=== PATIENT | male | born 1990 | race Caucasian/White ===

== ENCOUNTER 2018-04-30 17:41 | Emergency (ER) | payer SELFPAY ==
[~2018-04-30] VITALS: Ht 170.2 cm; Wt 70.3 kg
[~2018-04-30 17:41] MED LIST: AZIT250T81 PO
[2018-04-30] MEDS ORDERED: LACTATED RINGERS 1,000 ML IV ONE (18:09)
[2018-04-30 18:19] LABS: BILIRUBIN,URINE NEGATIVE (NEGATIVE); CLARITY,URINE CLEAR; COLOR,URINE YELLOW; GLUCOSE, URINE (UA) NEGATIVE (NEGATIVE); KETONES,URINE NEGATIVE (NEGATIVE); LEUKOCYTE ESTERASE ,URINE NEGATIVE (NEGATIVE); NITRITE,URINE NEGATIVE (NEGATIVE); PH,URINE 6.5 (5-9); PROTEIN,URINE NEGATIVE (NEGATIVE); UROBILINOGEN,URINE 1 MG/DL (NORMAL)
--- NOTE | 2018-04-30 18:20 | ED General ---
General Chief Complaint: Substance Abuse Stated Complaint: POSS OD Nursing Triage Note: PT'S GIRLFRIEND STATES THAT SHE CAME HOME AND FOUND THE PT WITH SLURRED SPEACH AND LETHARGIC. SHE CALLED ONE OF HIS CO WORKERS AND THEY STATED HE TOOK A BUNCH OF PILLS. PT STATES HE TOOK AN UNKNOWN NUMBER OF FLEXERIL, XANAX, AND HYDROCODONE. PT STATES HE WAS NOT TRYING TO HURT HIMSELF BUT WANTED TO "GET A RECREATIONAL HIGH." Nursing Sepsis Screen: No Definite Risk Source of Information: Other (MOM, GIRLFRIEND) Exam Limitations: Other (PT UNABLE TO GIVE RELIABLE INFORMATION--SI CONFUSED) History of Present Illness Date Seen by Provider: Apr 30, 2018 Time Seen by Provider: 17:55 Initial Comments PT ARRIVES VIA POV WITH MOM AND GIRLFRIEND PT WAS LAST SEEN BY GIRLFRIEND AND MOM LAST EVENING AND WAS NORMAL GIRLFRIEND CAME HOME TODAY AT 1600 AND FOUND PT IN BED, AND COULDN'T WALK, WAS CONFUSED, TALKING OUT OF HIS HEAD--DIDN'T KNOW HIS NAME OR WHERE HE WAS OR WHAT YEAR IT WAS GIRLIENFreddy HAS BEEN TEXTING CO-WORKERS [employer] SINCE 1729 AND THEY HAVE TOLD HER THAT THEY ALL GOT OFF WORK AROUND 11:00 OR 12 NOON TODAY, THAT PT WAS WITH 1 CO-WORKER AND THEN WENT TO ANOTHER FRIEND'S HOUSE A CO-WORKER INFORMED GIRLFRIEND THAT HE TOOK SOME PILLS PT STATES HE POSSIBLY TOOK FLEXERIL, XANAX, HYDROCODONE AND POSSIBLY VALIUM. PT STATES HE WAS "TRYING TO GET HIGH". CANNOT STATE FOR CERTAIN WHAT HE TOOK OR HOW MUCH. PT STATES HE ABUSES RX PILLS "A COUPLE OF TIMES A MONTH"--NOT MEDICATIONS THAT HAVE BEEN PRESCRIBED TO HIM PT ALSO STATES HE HAS BEEN DRINKING AND HAD 3-4 BEERS TODAY AND THAT HE BEGAN DRINKING AROUND 1230 TODAY PT ALSO STATES HE HAS BEEN AT THE [facility] ALL DAY---PER GIRLFRIEND, HIS FRIENDS HAVE STATED THAT HE HAS NOT BEEN TO A BALLGAME TODAY AND THAT PT HAS NOT HAD ANY ALCOHOL AND THAT NO ONE WAS DRINKING ALCOHOL TODAY. UNABLE TO VERIFY IF/WHAT PT MIGHT HAVE TAKEN TODAY NO OTHER INFORMATION IS KNOW ABOUT WHAT OCCURRED AT ANY TIME TODAY PCP: NONE--WAS SEEING DR. CARRINGTON IN [place], BUT HE HAS LEFT THE PRACTICE. Allergies and Home Medications Allergies Coded Allergies: No Known Drug Allergies (Unverified , 05/05/15) Home Medications Azithromycin 250 Mg Tablet, 250 MG PO DAILY Prescribed by: ELISEO SAUCEDO on 05/05/15 0304 Patient Home Medication List Home Medication List Reviewed: Yes Review of Systems Constitutional: other (PT IS NOT RELIABLE HISTORIAN) Gastrointestinal: No nausea, No vomiting Past Szoihxn-Dnnewc-Vzmcoo Hx Patient Social History Alcohol Use: Occasionally Uses Alcohol Beverage of Choice: Beer Recreational Drug Use: Yes (RX DRUGS; TESTED + FOR AMPHETAMINES/ METHAMPHETAMINES, THC, TRICYCYLICS, BENZODIAZEPINES ON 04/30/18) Drug of Choice: TESTED + FOR AMPHETAMINES/METHAMPHETAMINES,THC, TRICYCLIC, BENZO'S 04/30/18 Smoking Status: Current Everyday Smoker (1 PPD) Type Used: Cigarettes Recent Foreign Travel: No Contact w/Someone Who Travel: No Recent Infectious Disease Expo: No Recent Hopitalizations: No Seasonal Allergies Seasonal Allergies: No Past Medical History Surgeries: Yes (BILAT EAR DRUM RECONSTRUCTION) Ear Surgery, Tonsillectomy Respiratory: Yes (heavy tobaccoism) Cardiac: No Neurological: No Reproductive Disorders: No Genitourinary: No Gastrointestinal: No Musculoskeletal: No Endocrine: No HEENT: Yes (EAR RECONSTRUCTION) Tonsilitis Hearing Impairment: Hard of Hearing Cancer: No Psychosocial: Yes (RX DRUG ABUSE) Integumentary: No Blood Disorders: No Physical Exam Vital Signs Vital Signs - First Documented 04/30/18 17:49 Temp 97.4 Pulse 61 Resp 18 B/P (MAP) 127/82 (97) Pulse Ox 100 O2 Delivery Room Air Capillary Refill : Less Than 3 Seconds Height, Weight, BMI Height: 5'7" Weight: 155lbs. oz. 70.953390kt; 25.84 BMI Method:Stated General Appearance: No Apparent Distress, Thin, Other (PT ACTING VERY "SPACEY" --TALKING BUT SPEECH IS SOMEWHAT MUMBLED, AND SPACES OUT/MUCH DIFFICULTY CONCENTRATING--UNABLE TO COMPLETE SENTENCES, SIMPLY STOPS TALKING MID-SENTENCE, LOOKING AROUND AT NOTHING IN PARTICULAR. ) HEENT: PERRL/EOMI Neck: Normal Inspection Respiratory: Normal Breath Sounds, No Accessory Muscle Use, No Respiratory Distress Cardiovascular: Regular Rate, Rhythm, No Edema, No JVD, No Murmur, Normal Peripheral Pulses Gastrointestinal: Non Tender, Soft Extremity: Normal Inspection Neurologic/Psychiatric: Alert, No Motor/Sensory Deficits, supplier engineer II-XII Norm as Tested, Other (MENTATION ABOVE. PT DIFFICULTY FORMING AND COMPLETING THOUGHTS , DIFFICULTY FOLLOWING COMMANDS, UNABLE TO DETERMINE ORIENTATION--ORIENTED TO PERSON AND PEOPLE IN ROOM, BUT APPEARS CONFUSED TO PLACE, TIME, SITUATION, AND TODAY'S EVENTS. SOME DIFFICULTY COMPLETING SIMPLE TASKS) Progress/Results/Core Measures Suspected Sepsis Recent Fever Within 48 Hours: No Infection Criteria Present: None New/Unexplained Altered Menta: Yes Sepsis Screen: No Definite Risk SIRS Temperature:97.4 Pulse: 61 Respiratory Rate: 18 Laboratory Tests 04/30/18 18:20: White Blood Count 10.9 Blood Pressure 127 /82 Mean: 97 Laboratory Tests 04/30/18 18:20: Creatinine 0.96, Platelet Count 189, Total Bilirubin 0.9 Results/Orders Lab Results Laboratory Tests Test 04/30/18 18:10 04/30/18 18:20 Range/Units Urine Color YELLOW Urine Clarity CLEAR Urine pH 6.5 5-9 Urine Specific [place] 1.015 L 1.016-1.022 Urine Protein NEGATIVE NEGATIVE Urine Glucose (UA) NEGATIVE NEGATIVE Urine Ketones NEGATIVE NEGATIVE Urine Nitrite NEGATIVE NEGATIVE Urine Bilirubin NEGATIVE NEGATIVE Urine Urobilinogen 1 NORMAL MG/DL Urine Leukocyte Esterase NEGATIVE NEGATIVE Urine RBC (Auto) NEGATIVE NEGATIVE Urine RBC NONE /HPF Urine WBC NONE /HPF Urine Squamous Epithelial Cells RARE /HPF Urine Crystals NONE /LPF Urine Bacteria NONE /HPF Urine Casts NONE /LPF Urine Mucus NEGATIVE /LPF Urine Culture Indicated NO Urine Opiates Screen NEGATIVE NEGATIVE Urine Oxycodone Screen NEGATIVE NEGATIVE Urine Methadone Screen NEGATIVE NEGATIVE Urine Propoxyphene Screen NEGATIVE NEGATIVE Urine Barbiturates Screen NEGATIVE NEGATIVE Ur Tricyclic Antidepressants Screen POSITIVE H NEGATIVE Urine Phencyclidine Screen NEGATIVE NEGATIVE Urine Amphetamines Screen POSITIVE H NEGATIVE Urine Methamphetamines Screen POSITIVE H NEGATIVE Urine Benzodiazepines Screen POSITIVE H NEGATIVE Urine Cocaine Screen NEGATIVE NEGATIVE Urine Cannabinoids Screen POSITIVE H NEGATIVE White Blood Count 10.9 4.3-11.0 10^3/uL Red Blood Count 5.25 4.35-5.85 10^6/uL Hemoglobin 16.8 13.3-17.7 G/DL Hematocrit 46 40-54 % Mean Corpuscular Volume 88 80-99 FL Mean Corpuscular Hemoglobin 32 25-34 PG Mean Corpuscular Hemoglobin Concent 36 32-36 G/DL Red Cell Distribution Width 13.1 10.0-14.5 % Platelet Count 189 130-400 10^3/uL Mean Platelet Volume 10.1 7.4-10.4 FL Neutrophils (%) (Auto) 64 42-75 % Lymphocytes (%) (Auto) 29 12-44 % Monocytes (%) (Auto) 6 0-12 % Eosinophils (%) (Auto) 1 0-10 % Basophils (%) (Auto) 0 0-10 % Neutrophils # (Auto) 6.9 1.8-7.8 X 10^3 Lymphocytes # (Auto) 3.2 1.0-4.0 X 10^3 Monocytes # (Auto) 0.7 0.0-1.0 X 10^3 Eosinophils # (Auto) 0.1 0.0-0.3 10^3/uL Basophils # (Auto) 0.0 0.0-0.1 10^3/uL Sodium Level 141 135-145 MMOL/L Potassium Level 3.6 3.6-5.0 MMOL/L Chloride Level 105 98-107 MMOL/L Carbon Dioxide Level 26 21-32 MMOL/L Anion Gap 10 5-14 MMOL/L Blood Urea Nitrogen 8 7-18 MG/DL Creatinine 0.96 0.60-1.30 MG/DL Estimat Glomerular Filtration Rate > 60 BUN/Creatinine Ratio 8 Glucose Level 86 70-105 MG/DL Calcium Level 10.1 8.5-10.1 MG/DL Total Bilirubin 0.9 0.1-1.0 MG/DL Aspartate Amino Transf (AST/SGOT) 20 5-34 U/L Alanine Aminotransferase (ALT/SGPT) 17 0-55 U/L Alkaline Phosphatase 74 40-136 U/L Total Protein 7.0 6.4-8.2 GM/DL Albumin 4.8 H 3.2-4.5 GM/DL TSH [place] Testing 0.91 0.35-4.94 UIU/ML Salicylates Level < 5.0 L 5.0-20.0 MG/DL Acetaminophen Level < 10 L 10-30 UG/ML Serum Alcohol < 10 <10 MG/DL My Orders Orders - AD BURCIAGA DO Ua Culture If Indicated (04/30/18 17:57) Thyroid Analyzer (04/30/18 17:57) Drug Screen Stat (Urine) (04/30/18 17:57) Cbc With Automated Diff (04/30/18 17:57) Comprehensive Metabolic Panel (04/30/18 17:57) Alcohol (04/30/18 17:57) Acetaminophen (04/30/18 17:57) Salicylate (04/30/18 17:57) Ekg Tracing (04/30/18 17:57) Monitor-Rhythm Ecg Trace Only (04/30/18 17:57) Saline Lock/Iv-Start (04/30/18 18:09) Lactated Ringers (Lr 1000 Ml Iv Solution (04/30/18 18:09) Ct Head Wo (04/30/18 18:09) Medications Given in ED Current Medications Medications Dose Ordered Sig/Sandra Route Start Time Stop Time Status Last Admin Dose Admin Lactated Ringer's 1,000 ml @ 0 mls/hr Q0M ONCE IV 04/30/18 18:09 04/30/18 18:10 DC 04/30/18 18:24 1,000 MLS/HR Vital Signs/I&O 04/30/18 04/30/18 17:49 19:17 Temp 97.4 97.2 Pulse 61 60 Resp 18 19 B/P (MAP) 127/82 (97) 139/81 (97) Pulse Ox 100 100 O2 Delivery Room Air Room Air Capillary Refill : Less Than 3 Seconds Blood Pressure Mean: 97 Progress Note : Progress Note PT MORE ALERT/ORIENTED AND ACTING A LITTLE MORE APPROPRIATE AT TIME OF DISMISSAL PT ABLE TO AMBULATE INTO AND OUT OF ER ON HIS OWN DISCUSSION WITH PT, MOM AND GIRLFRIEND ABOUT TEST RESULTS, AND GAVE INFORMATION ABOUT SUBSTANCE ABUSE TREATMENT ECG Initial ECG Impression Date: Apr 30, 2018 Initial ECG Impression Time: 18:18 Initial ECG Rate: 61 Initial ECG Rhythm: Normal Sinus Diagnostic Imaging Comments CT HEAD--NO ACUTE PROCESS, PER RADIOLOGIST REPORT @ 1854 Reviewed: Reviewed by Me Departure Impression Primary Impression: Illicit drug use Disposition: 01 HOME, SELF-CARE Condition: Stable Departure-Patient Inst. Referrals: BELTRAN CARRINGTON DO (PCP/Family) Primary Care Physician Patient Instructions: ALCOHOL AND SUBSTANCE ABUSE Add. Discharge Instructions: NO DRUGS!! NO ALCOHOL!! YOU MAY CONTACT [facility] AT [phone] OR [facility] AT [phone] FOR ADDICTION TREATMENT All discharge instructions reviewed with patient and/or family. Voiced understanding. AD BURCIAGA DO Apr 30, 2018 18:20
[2018-04-30 18:25] LABS: SQUAMOUS EPITHELIAL CELL,UR RARE /HPF
[2018-04-30 18:28] LABS: BASOPHILS % (AUTO) 0 % (0-10); EOSINOPHILS # (AUTO) 0.1 10^3/uL (0.0-0.3); EOSINOPHILS % (AUTO) 1 % (0-10); HEMATOCRIT 46 % (40-54); HEMOGLOBIN 16.8 G/DL (13.3-17.7); LYMPHOCYTES # (AUTO) 3.2 X 10^3 (1.0-4.0); LYMPHOCYTES % (AUTO) 29 % (12-44); MEAN CORPUSCULAR HEMOGLOBIN 32 PG (25-34); MEAN CORPUSCULAR HGB CONC 36 G/DL (32-36); MEAN CORPUSCULAR VOLUME 88 FL (80-99); MEAN PLATELET VOLUME 10.1 FL (7.4-10.4); MONOCYTES # (AUTO) 0.7 X 10^3 (0.0-1.0); MONOCYTES % (AUTO) 6 % (0-12); NEUTROPHILS # (AUTO) 6.9 X 10^3 (1.8-7.8); NEUTROPHILS % (AUTO) 64 % (42-75); PLATELET COUNT 189 10^3/uL (130-400); RED BLOOD COUNT 5.25 10^6/uL (4.35-5.85); RED CELL DISTRIBUTION WIDTH 13.1 % (10.0-14.5); WHITE BLOOD COUNT 10.9 10^3/uL (4.3-11.0)
[2018-04-30 18:30] LABS: AMPHETAMINE SCREEN, URINE POSITIVE (NEGATIVE); BARBITURATE SCREEN URINE NEGATIVE (NEGATIVE); BENZODIAZEPINES SCREEN URINE POSITIVE (NEGATIVE); CANNABINOID SCREEN, URINE POSITIVE (NEGATIVE); COCAINE SCREEN URINE NEGATIVE (NEGATIVE); METHADONE STAT NEGATIVE (NEGATIVE); METHAMPHETAMINE SCREEN URINE S POSITIVE (NEGATIVE); OPIATE SCREEN URINE NEGATIVE (NEGATIVE); OXYCODONE STAT NEGATIVE (NEGATIVE); PROPOXYPHENE STAT NEGATIVE (NEGATIVE); TRICYCLIC ANTIDEPRESSANTS SCRE POSITIVE (NEGATIVE)
[2018-04-30 18:47] LABS: ACETAMINOPHEN < 10 UG/ML (10-30); ALANINE AMINOTRANSFERASE 17 U/L (0-55); ALBUMIN 4.8 GM/DL (3.2-4.5); ALKALINE PHOSPHATASE 74 U/L (40-136); BILIRUBIN,TOTAL 0.9 MG/DL (0.1-1.0); BUN/CREATININE RATIO 8; CALCIUM 10.1 MG/DL (8.5-10.1); CARBON DIOXIDE 26 MMOL/L (21-32); CHLORIDE 105 MMOL/L (98-107); CREATININE SERUM 0.96 MG/DL (0.60-1.30); GFR ESTIMATED > 60; GLUCOSE 86 MG/DL (70-105); POTASSIUM 3.6 MMOL/L (3.6-5.0); SALICYLATE < 5.0 MG/DL (5.0-20.0); SODIUM 141 MMOL/L (135-145)
--- NOTE | 2018-04-30 18:47 | Diagnostic Imaging Report ---
INDICATION: Lethargy and slurred speech, possible overdose. Noncontrast brain CT is performed. There is no prior study for comparison. FINDINGS: There are no extra-axial fluid collections. No intracranial hemorrhage. No intracranial mass or mass effect. No midline shift. The ventricles are normal in size and position. There are no focal parenchymal abnormalities in the brain. Calvarial windows appear unremarkable. IMPRESSION: Negative noncontrast brain CT. Dictated by: Dictated on workstation # [id number]
[2018-04-30 19:07] LABS: TSH (THYROID ANALYZER) 0.91 UIU/ML (0.35-4.94)
[2018-04-30 19:17] VITALS: BP 139/81
== END 2018-04-30 19:18 | disposition home or self-care (01) ==
LOC: EDUNIT# 17:41 → ER 17:43
DX: F19.10 Other psychoactive substance abuse, uncomplicated (principal); F15.10 Other stimulant abuse, uncomplicated; F12.10 Cannabis abuse, uncomplicated; F17.210 Nicotine dependence, cigarettes, uncomplicated; Z90.89 Acquired absence of other organs
CPT/HCPCS: 36415; 70450; 80053; 80306; 80320; 80329; 81000; 84443; 85025; 93005; 93041; 96360

== ENCOUNTER 2020-04-02 18:15 | Inpatient (IN) | payer MEDICAID, OTHER ==
[~2020-04-02] VITALS: Ht 170 cm; Wt 72.0 kg
[2020-04-02] VITALS (8 sets, daily range): BP systolic 120–141; BP diastolic 83–94
[2020-04-02] MEDS ORDERED: LACTATED RINGERS 1,000 ML IV ONE (18:21)
--- OUTSIDE RECORDS SUMMARY | 2020-04-02 18:22 | XMS REPORT ---
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 [id number] ALLERGIES No Information ENCOUNTERS Encounter Location Date Diagnosis [facility] [address] [facility] [id number] [address] [place] [id number] Jun, [facility] [address] [facility] [id number] [place] [address] 08 Jun, 2017 Impetigo L01.00 ; Herpes sim plex infection of penis A60.01 and Screening for STD sexually transmitted disease Z11.3 IMMUNIZATIONS No Known Immunizations SOCIAL HISTORY Never Assessed REASON FOR VISIT Lab results PLAN OF CARE VITAL SIGNS MEDICATIONS Unknown Medications RESULTS No Results PROCEDURES No Known procedures INSTRUCTIONS MEDICATIONS ADMINISTERED No Known Medications
--- OUTSIDE RECORDS SUMMARY | 2020-04-02 18:22 | XMS REPORT | Continuity of Care Document ---
Author Organization Unknown Address Unknown Phone Unavailable Allergies Active Description Code Type Severity Reaction Onset Reported/Identified Relationship to Patient Clinical Status Yes NO KNOWN DRUG ALLERGIES UNKNOWN NO KNOWN DRUG ALLERG Yes No Known Drug Allergies [id number] Drug Allergy Unknown N/A 05/05/2015 Medications There is no data. Problems Date Dx Coded Attending Type Code Diagnosis Diagnosed By 05/05/2015 DAYNA JENKINS, ELISEO Lopez Ot 288.60 LEUKOCYTOSIS, UNSPECIFIED 05/05/2015 DAYNA JENKINS, ELISEO Lopez Ot 305.1 TOBACCO USE DISORDER 05/05/2015 DAYNA JENKINS, ELISEO Lopez Ot 780.79 OTH MALAISE FATIGUE 05/05/2015 DAYNA JENKINS, ELISEO Lopez Ot 785.1 PALPITATIONS 05/05/2015 DAYNA JENKINS, ELISEO Lopez Ot 786.09 RESPIRATORY ABNORM NEC 05/05/2015 DAYNA JENKINS, ELISEO Lopez Ot 787.02 NAUSEA ALONE 03/09/2017 JENNY ROSA 305.2 0 CANNABIS ABUSE, UNSPECIFIED USE 03/09/2017 EJNNY ROSA 780.7 9 OTHER MALAISE AND FATIGUE 03/09/2017 JENNY ROSA F12.1 0 CANNABIS ABUSE, UNCOMPLICATED 03/09/2017 JENNY ROSA R53.8 3 OTHER FATIGUE 04/30/2018 AD BURCIAGA DO Ot F12.10 CANNABIS ABUSE, UNCOMPLICATED 04/30/2018 AD BURCIAGA DO Ot F15.10 OTHER STIMULANT ABUSE, UNCOMPLICATED 04/30/2018 AD BURCIAGA DO Ot F17.210 NICOTINE DEPENDENCE, CIGARETTES, UNCOMPL 04/30/2018 AD BURCIAGA DO Ot F19.10 OTHER PSYCHOACTIVE SUBSTANCE ABUSE, UNCO 04/30/2018 AD BURCIAGA DO Ot Z90.89 ACQUIRED ABSENCE OF OTHER ORGANS 05/04/2018 AD BURCIAGA DO Ot F12.10 CANNABIS ABUSE, UNCOMPLICATED 05/04/2018 AD BURCIAGA DO Ot F15.10 OTHER STIMULANT ABUSE, UNCOMPLICATED 05/04/2018 AD BURCIAGA DO Ot F17.210 NICOTINE DEPENDENCE, CIGARETTES, UNCOMPL 05/04/2018 AD BURCIAGA DO Ot F19.10 OTHER PSYCHOACTIVE SUBSTANCE ABUSE, UNCO 05/04/2018 AD BURCIAGA DO Ot Z90.89 ACQUIRED ABSENCE OF OTHER ORGANS Procedures There is no data. Results Test Result Range CBC with Auto Diff - 03/09/17 22:26 Baso% 0.10 % 0.00-2.50 Eos 0.2 K/uL 0.0-0.7 Eos% 1.6 % 0.0-7.0 Hct 47.0 % 42.0-52.0 Hgb 16.1 g/dL 14.0-17.0 Lym 3.12 K/uL 0.60-3.40 Lym% 26.0 % 10.0-50.0 MCH 30.5 pg 27.0-31.2 MCHC 34.3 g/dL 32.0-36.0 MCV 89.0 fL 80.0-97.0 Tyler% 6.6 % 0.0-12.0 MPV 10.3 fL 7.4-10.0 Ela% 65.7 % 37.0-80.0 Plt 198 K/uL 150-400 RBC 5.28 M/uL 4.20-5.40 RDW 12.9 % 11.6-14.8 WBC 12.01 K/uL 5.00-10.00 Ela 7.90 K/uL 2.00-6.90 Tyler 0.8 K/uL 0.0-0.9 Baso 0.0 K/uL 0.0-0.2 Comprehensive Metabolic Panel - 03/09/17 22:27 Albumin 4.2 g/dL 3.6-5.1 ALP 87 U/L 35-130 ALT 36 U/L 6-45 Anion Gap 16 6-14 AST 28 U/L 2-40 BUN 12 mg/dL 5-25 Calcium 9.9 mg/dL 8.3-10.4 Chloride 103 mmol/L 95-114 CO2 25 mEq/L 22-33 Creat 0.92 mg/dL 0.50-1.50 eGFR 100 mL/min/1.73m2 >59 Globulin 3.8 g/dL 2.3-3.5 Glucose 100 mg/dL 70-110 Osmo 289 280-295 Potassium 3.5 mmol/L 3.5-5.3 Sodium 140 mmol/L 134-148 TBil 0.2 mg/dL 0.2-1.2 TP 8.0 g/dL 6.0-8.3 Rapid Drug Screen + ETOH,Medical - 03/09 22:27 Amphetamine NEGATIVE NEGATIVE Barbiturates NEGATIVE NEGATIVE Benzodiazepines NEGATIVE NEGATIVE Cocaine NEGATIVE NEGATIVE Ethanol, Urine <10.0 mg/dL 20.00-80.00 Marijuana POSITIVE NEGATIVE Methylenedioxymethamphetamine NEGATIVE NEGATIVE Opiates NEGATIVE NEGATIVE Oxycodone POSITIVE NEGATIVE Phencyclidine NEGATIVE NEGATIVE Propoxyphene NEGATIVE NEGATIVE Tricyclic Antidepressant NEGATIVE NEGAT ROBINA Urinalysis - 03/09/17 22:29 Icotest N/A Negative Urine Volume Urine Volume Sufficient (10mL) Urine Yeast No Yeast present Urine-Appearance Clear Clear Urine-Bacteria Negative Urine-Bilirubin Negative Negative Urine-Blood Negative Negative Urine-Color Yellow Colorless-[place] ow Urine-Epithelial Cells 0-5/HPF Urine-Glucose Negative Negative Urine-Ketones Negative Negative Urine-Leukocytes Negative Negative Urine-Nitrite Negative Negative Urine-Other Urine Saved if Culture Need ed (48hrs from time of collection) Urine-pH 7.0 5-8.5 Urine-Protein Negative Negative Urine-RBC Negative Urine-Specific [place] 1.010 1.000-1 .030 Urine-WBC Rare/HPF Urobilinogen 0.2 0.2-1.0 Acetaminophen - 03/09/17 22:29 Acetamin 2 ug/mL 0-300 CULTURE, VIRAL (HSV W/ TYPING) - 7 13:34 HSV Culture/Type NRG HSV 1/2 ANTIBODY IgM - 06/27/17 13:34 HSV 1 IgM Antibodies <1:10 titer <1:10 HSV 2 IgM Antibodies <1:10 titer <1:10 HSV 1 and 2 IgM Abs, Indirect - 06/27/17 13:34 HSV 1 IgM Antibodies <1:10 titer <1:10 HSV 2 IgM Antibodies <1:10 titer <1:10 HSV Culture and Typing - 06/27/17 13:34 HSV Culture/Type Comment Complete urinalysis with reflex to cultu re - 04/30/18 18:10 Urine color determination YELLOW NRG Urine clarity determination CLEAR NR G Urine pH measurement by test strip 6.5 5-9 Specific gravity of urine by test strip 1.015 1.016-1.022 Urine protein assay by test strip, semi-quantitative NEGATIVE NEGATIVE Urine glucose detection by automated test strip NE GATIVE NEGATIVE Erythrocytes detection in urine sediment by light micr oscopy NEGATIVE NEGATIVE Urine ketones detection by automated test strip NE GATIVE NEGATIVE Urine nitrite detection by test strip NEGATIVE NEGATIVE Urine total bilirubin detection by test strip NEGA TIVE NEGATIVE Urine urobilinogen measurement by automated test strip (mass/volume) 1 mg/dL NORMAL Urine leukocyte esterase detection by dipstick NEG ATIVE NEGATIVE Automated urine sediment erythrocyte cou nt by microscopy (number/high power field) NONE NRG Automated urine sediment leukocyte count by microscopy (number/high power field) NONE NRG Bacteria detection in urine sediment by light microsco py NONE NRG Squamous epithelial cells detection in u rine sediment by light microscopy RARE NRG Crystals detection in urine sediment by light microsco py NONE NRG Casts detection in urine sediment by light microscopy NONE NRG Mucus detection in urine sediment by light microscopy NEGATIVE NRG Complete urinalysis with reflex to culture NO NRG Urine drug screening test - 04/30/18 18: 10 Urine phencyclidine detection by screening method NEGATIVE NEGATIVE Urine benzodiazepines detection by screening method POSITIVE NEGATIVE Urine cocaine detection NEGATIVE NEGATI VE Urine amphetamines detection by screening method P OSITIVE NEGATIVE Urine methamphetamine detection by screening method POSITIVE NEGATIVE Urine cannabinoids detection by screening method P OSITIVE NEGATIVE Urine opiates detection by screening method NEGATI VE NEGATIVE Urine barbiturates detection NEGATIVE N EGATIVE Screening urine tricyclic antidepressants detection POSITIVE NEGATIVE Urine methadone detection by screening method NEGA TIVE NEGATIVE Urine oxycodone detection NEGATIVE NEGA TIVE Urine propoxyphene detection NEGATIVE N EGATIVE Complete blood count (CBC) with automate d white blood cell (WBC) differential - 04/30/18 18:20 Blood leukocytes automated count (number/volume) 10.9 10*3/uL 4.3-11.0 Blood erythrocytes automated count (number/volume) 5.25 10*6/uL 4.35-5.85 Venous blood hemoglobin measurement (mass/volume) 16.8 g/dL 13.3-17.7 Blood hematocrit (volume fraction) 46 % 40-54 Automated erythrocyte mean corpuscular volume 88 [ foz_us] 80-99 Automated erythrocyte mean corpuscular h emoglobin (mass per erythrocyte) 32 pg 25-34 Automated erythrocyte mean corpuscular h emoglobin concentration measurement (mass/volume) 36 g/dL 32-36 Automated erythrocyte distribution width ratio 13. 1 % 10.0- 14.5 Automated blood platelet count (count/volume) 189 10*3/uL 130-400 Automated blood platelet mean volume measurement 10.1 [foz_us] 7.4-10.4 Automated blood neutrophils/100 leukocytes 64 % 42-75 Automated blood lymphocytes/100 leukocytes 29 % 12-44 Blood monocytes/100 leukocytes 6 % 0-12 Automated blood eosinophils/100 leukocytes 1 % 0-10 Automated blood basophils/100 leukocytes 0 % 0-10 Blood neutrophils automated count (number/volume) 6.9 10*3 1.8-7.8 Blood lymphocytes automated count (number/volume) 3.2 10*3 1.0-4.0 Blood monocytes automated count (number/volume) 0. 7 10*3 0.0-1.0 Automated eosinophil count 0.1 10*3/uL 0 .0-0.3 Automated blood basophil count (count/volume) 0.0 10*3/uL 0.0-0.1 Comprehensive metabolic panel - 04/30/18 18:20 Serum or plasma sodium measurement (moles/volume) 141 mmol/L 135-145 Serum or plasma potassium measurement (moles/volume) 3.6 mmol/L 3.6-5.0 Serum or plasma chloride measurement (moles/volume) 105 mmol/L 98-107 Carbon dioxide 26 mmol/L 21-32 Serum or plasma anion gap determination (moles/volume) 10 mmol/L 5-14 Serum or plasma urea nitrogen measurement (mass/volume ) 8 mg/dL 7-18 Serum or plasma creatinine measurement (mass/volume) 0.96 mg/dL 0.60-1.30 Serum or plasma urea nitrogen/creatinine mass ratio 8 NRG Serum or plasma creatinine measurement w ith calculation of estimated glomerular filtration rate > NRG Serum or plasma glucose measurement (mass/volume) 86 mg/dL 70-105 Serum or plasma calcium measurement (mass/volume) 10.1 mg/dL 8.5-10.1 Serum or plasma total bilirubin measurement (mass/volu me) 0.9 mg/dL 0.1-1.0 Serum or plasma alkaline phosphatase anna surement (enzymatic activity/volume) 74 U/L 40-136 Serum or plasma aspartate aminotransfera se measurement (enzymatic activity/volume) 20 U/L 5-34 Serum or plasma alanine aminotransferase measurement (enzymatic activity/volume) 17 U/L 0-55 Serum or plasma protein measurement (mass/volume) 7.0 g/dL 6.4-8.2 Serum or plasma albumin measurement (mass/volume) 4.8 g/dL 3.2-4.5 Serum or plasma thyrotropin measurement by detection limit <=0.05 miu/l (units/volume) - 04/30/18 18:20 Serum or plasma thyrotropin measurement by detection limit <=0.05 miu/l (units/volume) 0.91 u[iU]/mL 0.35-4.94 Serum or plasma salicylates measurement (mass/volume) - 04/30/18 18:20 Serum or plasma salicylates measurement (mass/volume) < mg/dL 5.0-20.0 Serum or plasma acetaminophen measuremen t (mass/volume) - 04/30/18 18:20 Serum or plasma acetaminophen measurement (mass/volume ) < ug/mL 10-30 Serum or plasma ethanol measurement (mas s/volume) - 04/30/18 18:20 Serum or plasma ethanol measurement (mass/volume) < mg/dL <10 Encounters ACCT No. Visit Date/Time Discharge Status Pt. Type Provider Facility Loc./Unit Complaint [id number] 03/21/2020 13:40:00 03/21/2020 23:59:5 9 CLS Outpatient [facility], [facility] IN [facility] [id number] 06/27/2017 13:05:00 Document Registration [id number] 04/30/2018 17:43:00 018 19:18:00 DIS Emergency AD BURCIAGA DO a [facility] ER POSS OD [id number] 05/05/2015 00:14:00 015 03:15:00 DIS Emergency DAYNA JENKINS, ELISEO Lopez [facility] ER DEHYDRATED [id number] 03/09/2017 21:59:00 03/09/2017 23:42: 00 DIS Outpatient JENNY ROSA [facility] ER [id number] 07/01/2017 03:07:00 Document Registration
--- OUTSIDE RECORDS SUMMARY | 2020-04-02 18:22 | XMS REPORT ---
Author Author [facility] [email or web address] Address [address] [place] [address] Care Team Providers Care Bicycle Repair Technician Name Role Phone RUTH ERIC Unavailable RUTH ERIC Unavailable ZEBBELTRAN L Unavailable JENNY ROSA Unavailable Unavailable MYKEL THORNTON Unavailable Unavailable MYKEL TOHRNTON Unavailable Unavailable PCP, NONE Unavailable Unavailable Unavailable Unavailable Unavailable Unavailable Allergies Normalized Allergy Reported Date of Reaction(s) Care Provider Facility Allergy Type classification allergen Allergy Onset no information Unclassified NO KNOWN DRUG NO KNOWN DRUG JENNY Not Available (4 sources.) ALLERGIES ALLERGIES [facility] ([id number]) Medications Medication Ingredient Drug Dose Dates Status Sig Sig Care Class(es) (Normalized) (Original) Provid er azithromyci azithromyci Macrolide 250 mg 05-05-20 Complete take 1 Azithromycin Titus n 250 mg n Antimicrobi 15 d tablet by 250 Mg T oral tablet al mouth once Tablet 250 Bruegg (1 source.) daily Mg ORAL emann Daily 4 Tab (no 05/05/15 phone) Problems Active Problems Problem Normalized Date Last Normalized Normalized Provider Fa cility Classification Problem(s) Recorded Problem Problem Sta tus Duration Unclassified Acquired Episodic Active no name no informa tion (1 source.) absence of other organs Other lower Dyspnea Episodic Active BELTRAN Via [facility] respiratory [facility] [address] Hospital disease (1 [place] source.) ([address]) Substance-rela Illicit drug Chronic Active JENNY Not Available shoaib disorders use [facility] (67694) (8 sources.) Translations: [ OTHER PSYCHOACTIVE SUBSTANCE ABUSE, UNCO, OTHER STIMULANT ABUSE, UNCOMPLICATED, CANNABIS ABUSE, UNCOMPLICATED, NICOTINE DEPENDENCE, CIGARETTES, UNCOMPL, TOBACCO USE DISORDER, CANNABIS ABUSE, UNSPECIFIED USE] 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 [facility]ti white blood Translations: [address] cells (3 [ [place] sources.) LEUKOCYTOSIS, (75671) UNSPECIFIED] Nausea and Nausea Episodic Active BELTRAN Via [facility] vomiting (3 Translations: [address] sources.) [ NAUSEA [place] ALONE] ([address]47) Malaise and Other malaise Episodic Active JENNY Not Av ailable fatigue (8 and fatigue [facility] (13978) sources.) Translations: [ OTHER FATIGUE, OTHER MALAISE AND FATIGUE] Other lower Other Episodic Active TITUS Not Availab le respiratory respiratory BRUEGGEMANN , (74412) disease (2 abnormalities MD sources.) Cardiac Palpitations Episodic Active BELTRAN Via [facility] dysrhythmias Translations: [address] (4 sources.) [ [place] PALPITATIONS] (767[address]) Past or Other Problems Problem Normalized Date Last Normalized Normalized Provider Fa cility Classification Problem(s) Recorded Problem Problem Sta tus Duration Unclassified no information no information no information TIMOT HY Via [facility] (1 source.) [address] ([address]) Procedures Procedure Normalized Procedure Procedure Result Performer Facility Date 04-30-2018 Computed tomography of no information AD BURCIAGA Via [facility] head without contrast [place] ([id number]) 04-30-2018 Electrocardiographic no information AD BURCIAGA Vi a [facility] procedure [place] ([address]) Immunizations Normalized Immunization Date Notes Care Provider Facili ty Immunization Vaccination no information BELTRANMANNIE CARRINGTON Via [facility] H ospital Translations: [ [address] [place] ([address]) vaccine] Results Test Name Value Interpretation Reference Range Date Time Fa cility (Normalized) (Normalized) (Medline Reference) venous blood hemoglobin measurement (mass/volume) on 2018-04-30 Hemoglobin (HGB) 16.8 g/dL (no code) 12 - 18 g/dL Via [facility] (42071) urine urobilinogen measurement by automated test strip (mass/volume) on 2018-04-30 Urine, 1 (no code) Via [facility] urobilinogen [facility] (06324) urine total bilirubin detection by test strip on 2018-04-30 Urine, bilirubin Negative (no code) Via [facility] presence [facility] (03788) urine protein assay by test strip, semi-quantitativ e on 2018-04-30 Urine, protein Negative (no code) Via [facility] (63334) urine ph measurement by test strip on 2018-04-30 Urine, pH 6.5 [pH] (no code) 4.6 - 8 [pH] Via [facility] (92977) urine nitrite detection by test strip on 2018-04-30 Urine, nitrite Negative (no code) Via [facility] (56658) urine ketones detection by automated test strip on 2018-04-30 Urine, ketones Negative (no code) Via [facility] (65445) urine glucose detection by automated test strip on 2018-04-30 Urine, glucose Negative (no code) Via [facility] (29559) urine color determination on 2018-04-30 Urine, color YELLOW (no code) Via [facility] (23941) urine clarity determination on 2018-04-30 Urine, clarity CLEAR (no code) Via [facility] (70665) squamous epithelial cells detection in urine sediment by light microscopy on 2018-04-30 Urine, squamous RARE (no code) Via [facility] cells [facility] in sediment [place] ([address]14) specific gravity of urine by test strip on 2018-04-30 Urine, specific 1.015 (*) Via [facility] (23989) serum or plasma urea nitrogen/creatin ine mass ratio on 2018-04-30 BUN/Creatinine 8 mg/mg (no code) 10 - 20 mg/mg Via [facility] (59885) serum or plasma urea nitrogen measurement (mass/volume) on 2018-04-30 Urea nitrogen 8 mg/dL (no code) 7 - 20 mg/dL Via [facility] (81232) serum or plasma total bilirubin measurement (mass/volume) on 2018-04-30 Bilirubin 0.9 mg/dL (no code) 0.3 - 1.9 mg/dL Via [facility] (total) [facility] (50282) serum or plasma thyrotropin measurement by detection limit <=0.05 miu/l (units/volume) on 2018-04-30 Thyroid 0.91 m[IU]/L (no code) 0.4 - 4 m[IU]/L Via [facility] stimulating [facility] hormone (TSH) [place] (27964) serum or plasma sodium measurement (moles/volume) on 2018-04-30 Sodium 141 mmol/L (no code) 135 - 147 mmol/L Via [facility] (40850) serum or plasma salicylates measurement (mass/volume) on 2018-04-30 Salicylates no information (L) Via [facility] (97516) serum or plasma protein measurement (mass/volume) on 2018-04-30 Protein 7.0 g/dL (no code) 6.4 - 8.3 g/dL Via [facility] (77920) serum or plasma potassium measurement (moles/volume) on 2018-04-30 Potassium 3.6 mmol/L (no code) 3.5 - 5.1 mmol/L Via [facility] (19667) serum or plasma glucose measurement (mass/volume) on 2018-04-30 Glucose 86 mg/dL (no code) 60 - 125 mg/dL Via [facility] (71110) serum or plasma creatinine measurement with calculation of estimated glomerular filtration rate on 2018-04-30 eGFR (non-black) no information (no code) Via [facility] (92702) serum or plasma creatinine measurement (mass/volume) on 2018-04-30 Creatinine 0.96 mg/dL (no code) Via [facility] (67568) serum or plasma chloride measurement (moles/volume) on 2018-04-30 Chloride 105 mmol/L (no code) 95 - 106 mmol/L Via [facility] (68573) serum or plasma calcium measurement (mass/volume) on 2018-04-30 Calcium 10.1 mg/dL (no code) 9 - 11 mg/dL Via [facility] (92940) serum or plasma aspartate aminotransferase measurement (enzymatic activity/volume) on 2018-04-30 Aspartate 20 U/L (no code) 10 - 34 U/L Via [facility] aminotransferase [facility] (AST) [place] (03923) serum or plasma anion gap determination (moles/volume) on 2018-04-30 Anion gap 10 mmol/L (no code) 3 - 11 mmol/L Via [facility] (61786) serum or plasma alkaline phosphatase measurement (enzymatic activity/volume) on 2018-04-30 Alkaline 74 U/L (no code) 44 - 147 U/L Via [facility] phosphatase [facility] (ALP) [place] ([address]6411) serum or plasma albumin measurement (mass/volume) on 2018-04-30 Albumin 4.8 g/dL (H) 3.5 - 5.5 g/dL Via [facility] (01083) serum or plasma alanine aminotransferase measurement (enzymatic activity/volume) on 2018-04-30 Alanine 17 U/L (no code) 10 - 40 U/L Via [facility] aminotransferase [facility] (ALT) [place] (75268) serum or plasma acetaminophen measurement (mass/volume) on 2018-04-30 Serum or plasma no information (L) Via [facility] acetaminophen [facility] measurement [place] (mass/volume) (41356) mucus detection in urine sediment by light microscopy on 2018-04-30 Urine, mucus Negative (no code) Via [facility] presence in [facility] (00057) leukocyte esterase on 2018-04-30 Urine, leukocyte Negative (no code) Via [facility] esterase [facility] (52814) erythrocytes detection in urine sediment by light microscopy on 2018-04-30 Urine, Negative (no code) Via [facility] erythrocytes [facility] (36862) crystals detection in urine sediment by light microscopy on 2018-04-30 Urine, crystals NONE (no code) Via [facility] in [facility] sediment [place] (46958) complete urinalysis with reflex to culture on 2018-04-30 Complete NO (no code) Via [facility] urinalysis with Hospital reflex to [place] culture (79009) casts detection in urine sediment by light microscopy on 2018-04-30 Urine, casts in NONE (no code) Via [facility] (24525) carbon dioxide on 2018-04-30 CO2 26 mmol/L (no code) 23 - 29 mmol/L Via [facility] (03646) blood neutrophils automated count (number/volume) on 2018-04-30 Neutrophils 6.9 10*3/uL (no code) 1.5 - 7.8 Via [facility] 10*3/uL [facility] (83611) blood monocytes/100 leukocytes on 2018-04-30 Monocytes/100 6 % (no code) 2 - 8 % Via [facility] leukocytes [facility] (63847) blood monocytes automated count (number/volume) on 2018-04-30 Monocytes 0.7 10*3/uL (no code) 0.2 - 1.1 Via [facility] 10*3/uL [facility] (66692) blood lymphocytes automated count (number/volume) on 2018-04-30 Lymphocytes 3.2 10*3/uL (no code) 0.85 - 4.1 Via [facility] 10*3/uL [facility] (79876) blood leukocytes automated count (number/volume) on 2018-04-30 WBC (Leukocytes) 10.9 10*3/uL (no code) 3.8 - 10.8 Via [facility] 10*3/uL [facility] (14397) blood hematocrit (volume fraction) on 2018-04-30 Hematocrit (HCT) 46 % (no code) 39 - 51 % Via [facility] (52252) blood erythrocytes automated count (number/volume) on 2018-04-30 Erythrocytes 5.25 10*6/uL (no code) 4.2 - 6.1 Via [facility] (RBC) 10*6/uL [facility] (23791) bacteria detection in urine sediment by light microscopy on 2018-04-30 Urine, bacteria NONE (no code) Via [facility] in sediment [facility] (16238) automated urine sediment leukocyte count by microscopy (number/high power field) on 2018-04-30 Urine, NONE (no code) Via [facility] leukocytes [facility]85672[facility] automated urine sediment erythrocyte count by microscopy (number/high power field) on 2018-04-30 Urine, NONE (no code) Via [facility] erythrocytes in [facility] sediment by [facility] (89982) automated erythrocyte mean corpuscular volume on 2018-04-30 MCV 88 fL (no code) 80 - 100 fL Via [facility] (94473) automated erythrocyte mean corpuscular hemoglobin concentration measurement (mass/volume) on 2018-04-30 MCHC 36 g/dL (no code) 32 - 36 g/dL Via [facility] (45897) automated erythrocyte mean corpuscular hemoglobin (mass per erythrocyte) on 2018-04-30 MCH 32 pg (no code) 27 - 31 pg Via [facility] (36690) automated erythrocyte distribution width ratio on 2018-04-30 RDW-CA 13.1 % (no code) 11 - 15 % Via [facility] (46853) automated eosinophil count on 2018-04-30 Eosinophils 0.1 10*3/uL (no code) 0.05 - 1.5 Via [facility] 10*3/uL [facility] (32240) automated blood platelet mean volume measurement on 2018-04-30 Platelet mean 10.1 fL (no code) 7.2 - 11.7 fL Via [facility] volume (PMV) [facility] (90463) automated blood platelet count (count/volume) on 2018-04-30 Platelets 189 10*3/uL (no code) 150 - 400 Via [facility] 10*3/uL [facility] (48577) automated blood neutrophils/100 leukocytes on 2018-04-30 Neutrophils/100 64 % (no code) 40 - 60 % Via [facility] leukocytes [facility] (99328) automated blood lymphocytes/100 leukocytes on 2018-04-30 Lymphocytes/100 29 % (no code) 20 - 40 % Via [facility] leukocytes [facility] (78551) automated blood eosinophils/100 leukocytes on 2018-04-30 Eosinophils/100 1 % (no code) 1 - 4 % Via [facility] (54645) automated blood basophils/100 leukocytes on 2018-04-30 Basophils/100 0 % (no code) 0.5 - 1 % Via [facility] (74528) automated blood basophil count (count/volume) on 2018-04-30 Basophils 0.0 10*3/uL (no code) 0 - 0.2 10*3/uL Via [facility] (63648) urinalysis on 2017-03-09 Amphetamines Ql Negative (no code) 03-09-2017 Not Availa ble (U) 23:27-0400 (93932) Barbiturates Negative (no code) 03-09-2017 Not Available Screen Ql (U) 23:-0400 (23441) Clarity (U) Clear (no code) 03-09-2017 Not Available 23:0400 (35116) Cocaine Ql (U) Negative (no code) 03-09-2017 Not Availab le 23:27-0400 (19544) Color (U) Yellow (no code) 03-09-2017 Not Available 23:29-0400 (77146) Epithelial 0-5/HPF (A) 03-09-2017 Not Available cells.squamous 23:0400 (16535) LM.HPF (Urine sed) [#/Area] Leukocyte Negative (no code) 03-09-2017 Not Available esterase Test 23:29-0400 (88930) strip Ql (U) Phencyclidine Ql Negative (no code) 03-09-2017 Not Avail able (U) 23:27-0400 (94918) Protein (U) Negative (no code) 0 - 20 mg/dL 03-09-2017 Not Chelo ilable [Mass/Vol] 23:29-0400 (90046) RBC LM.HPF Negative (no code) 0 - 4 /[HPF] 03-09-2017 Not Avai lable (Urine sed) 23:29-0400 (02486) [#/Area] Specific gravity 1.010 (no code) 03-09-2017 Not Avail able (U) [Rel 23:29-0400 (55313) density] WBC LM.HPF Rare/HPF (A) 03-09-2017 Not Available (Urine sed) 23:29-0400 (05076) [#/Area] other on 2017-03-09 Acetaminophen 2 (no code) 03-09-2017 Not Availabl e [Mass/Vol] 23:29-0400 (56736) Albumin BCG dye 4.2 (no code) 03-09-2017 Not Availa ble [Mass/Vol] 23:27-0400 (45553) Bacteria LM Ql Negative (no code) 03-09-2017 Not Availab le (Urine sed) 23:29-0400 (07097) Benzodiazepine Negative (no code) 03-09-2017 Not Availab le metabolites 23:27-0400 (16045) Screen Ql (U) Bilirubin N/A (A) 03-09-2017 Not Available Confirm Ql (U) 23:29-0400 ([id number]) Bilirubin Ql (U) Negative (no code) 03-09-2017 Not Avail able 23:29-0400 (71967) Carboxy Positive (AA) 03-09-2017 Not Available tetrahydrocannab 23:27-0400 (80159) inol Ql (U) Electrocardiogra Complete (no code) 03-09-2017 Not Avail able ms recorded 23:27-0400 ([id number]) Erythrocyte 12.9 % (no code) 11.6 - 14.6 % 03-09-2017 Not Av ailable distribution 23:26-0400 (48961) width (RBC) [Ratio] Ethanol Ql (U) <10.0 (no code) 03-09-2017 Not Availab le 23:27-0400 (32693) GFR/1.73 sq 100 (no code) 90 - 120 03-09-2017 Not Availa ble M.predicted MDRD mL/min/{1.73_m2} mL/min/{1.73_m2} 23:27-0400 (46741) (S/P/Bld) [Vol rate/Area] Globulin (S) 3.8 g/dL (H) 2 - 3.5 g/dL 03-09-2017 Not Av ailable [Mass/Vol] 23:27-0400 (96461) Glucose Test Negative (no code) 03-09-2017 Not Available strip (U) 23:29-0400 (08844) [Mass/Vol] HCO3 (P) 25 (no code) 03-09-2017 Not Available [Moles/Vol] 23:27-0400 (99123) Hemoglobin Ql Negative (no code) 03-09-2017 Not Availabl e (U) 23:29-0400 (22813) Ketones (U) Negative (no code) 03-09-2017 Not Available [Mass/Vol] 23:29-0400 (00606) MCHC (RBC) 34.3 g/dL (no code) 32 - 36 g/dL 03-09-2017 Not Avai lable [Mass/Vol] 23:26-0400 (37096) Methylenedioxyme Negative (no code) 03-09-2017 Not Avail able thamphetamine 23:27-0400 (52258) Screen Ql (U) Nitrite Ql (U) Negative (no code) 03-09-2017 Not Availab le 23:29-0400 (05196) Opiates Screen Negative (no code) 03-09-2017 Not Availab le Ql (U) 23:27-0400 (10348) Osmolality Calc 289 (no code) 03-09-2017 Not Availa ble [Osmolality] 23:27-0400 (44244) Oxycodone Ql (U) Positive (AA) 03-09-2017 Not Avail able 23:27-0400 (40029) pH (U) 7.0 [pH] (no code) 4.6 - 8 [pH] 03-09-2017 Not Avail able 23:29-0400 (08843) Platelet mean 10.3 fL (H) 7.2 - 11.7 fL 03-09-2017 Not Available volume (Bld) 23:26-0400 (66795) [Entitic vol] Propoxyphene Ql Negative (no code) 03-09-2017 Not Availa ble (U) 23:0400 (37399) Salicylates <50 (no code) 03-09-2017 Not Available [Mass/Vol] 23:290400 (43864) Tricyclic Negative (no code) 03-09-2017 Not Available antidepressants 23:-0400 (34284) Ql (U) Urine Volume Urine Volume (no code) 03-09-2017 Not Availabl e Sufficient 23:0400 (58893) (10mL) Urobilinogen Qn 0.2 (no code) 03-09-2017 Not Availa ble (U) 23:290400 (32198) Yeast.budding Ql No Yeast present (no code) 03-09-2017 Not Available (Urine sed) 23:290400 (51527) no information Urine Saved if (A) 03-09-2017 Not Avai lable Culture Needed 23:0400 (64391) (48hrs from time of collection) metabolic panel on 2017-03-09 ALP [Catalytic 87 U/L (no code) 44 - 147 U/L 03-09-2017 Not Available activity/Vol] 23:0400 (59775) ALT [Catalytic 36 U/L (no code) 4 - 40 U/L 03-09-2017 Not Av ailable activity/Vol] 23:0400 (04002) Anion gap 16 mmol/L (H) 3 - 11 mmol/L 03-09-2017 Not Avai lable [Moles/Vol] 23:0400 (74947) AST [Catalytic 28 U/L (no code) 10 - 34 U/L 03-09-2017 Not A vailable activity/Vol] 23:0 (46844) Bilirubin 0.2 mg/dL (no code) 0.1 - 1.2 mg/dL 03-09-2017 Not Av ailable [Mass/Vol] 23:0400 (94863) Calcium 9.9 mg/dL (no code) 8.5 - 10.2 mg/dL 03-09-2017 Not A vailable [Mass/Vol] 23:0400 (10053) Chloride 103 mmol/L (no code) 95 - 106 mmol/L 03-09-2017 Not A vailable [Moles/Vol] 23: (23698) Creatinine 0.92 mg/dL (no code) 03-09-2017 Not Available [Mass/Vol] 23:0 (78247) Glucose 100 mg/dL (no code) 60 - 125 mg/dL 03-09-2017 Not Chelo ilable [Mass/Vol] 23: (69608) Potassium 3.5 mmol/L (no code) 3.7 - 5.2 mmol/L 03-09-2017 Not Available [Moles/Vol] 23: (50850) Protein 8.0 g/dL (no code) 6.4 - 8.3 g/dL 03-09-2017 Not Chelo ilable [Mass/Vol] 23: (07803) Sodium 140 mmol/L (no code) 135 - 145 mmol/L 03-09-2017 Not Available [Moles/Vol] 23:0400 (42629) Urea nitrogen 12 mg/dL (no code) 7 - 20 mg/dL 03-09-2017 Not A vailable [Mass/Vol] 23:0 (67175) hematology on 2017-03-09 Basophils (Bld) 0.0 10*3/uL (no code) 0 - 0.3 10*3/uL 03-09-2017 Not Available [#/Vol] 23:0400 (73104) Basophils/100 0.10 % (no code) 0.5 - 1 % 03-09-2017 Not Avai lable WBC (Bld) 23: (68999) Eosinophils 0.2 10*3/uL (no code) 0.05 - 0.5 03-09-2017 Not Chelo ilable (Bld) [#/Vol] 10*3/uL 23:26-0400 (73977) Eosinophils/100 1.6 % (no code) 1 - 4 % 03-09-2017 Not Av ailable WBC (Bld) 23:0400 (74458) Hematocrit (Bld) 47.0 % (no code) 36.1 - 50.3 % 03-09-2017 N ot Available [Volume 23: (18635) fraction] Hemoglobin (Bld) 16.1 g/dL (no code) 12.1 - 17.2 g/dL 03-09-2017 Not Available [Mass/Vol] 23:0400 (98820) Lymphocytes 3.12 10*3/uL (no code) 0.9 - 2.9 03-09-2017 Not Chelo ilable (Bld) [#/Vol] 10*3/uL 23:0400 (11673) Lymphocytes/100 26.0 % (no code) 20 - 40 % 03-09-2017 Not Av ailable WBC (Bld) 23:0400 (89309) MCH (RBC) 30.5 pg (no code) 27 - 31 pg 03-09-2017 Not Availab le [Entitic mass] 23:0400 (78508) MCV (RBC) 89.0 fL (no code) 80 - 100 fL 03-09-2017 Not Availa ble [Entitic vol] 23:0400 (14187) Monocytes (Bld) 0.8 10*3/uL (no code) 0.3 - 0.9 03-09-2017 Not Available [#/Vol] 10*3/uL 23:0400 (29999) Monocytes/100 6.6 % (no code) 2 - 8 % 03-09-2017 Not Avai lable WBC (Bld) 23:0400 (37422) Neutrophils 7.90 10*3/uL (H) 1.7 - 7 10*3/uL 03-09-2017 N ot Available (Bld) [#/Vol] 23:-0400 (29263) Neutrophils/100 65.7 % (no code) 40 - 60 % 03-09-2017 Not Av ailable WBC (Bld) 23:0400 (28438) Platelets (Bld) 198 10*3/uL (no code) 150 - 450 03-09-2017 Not Available [#/Vol] 10*3/uL 23:26-0400 (30798) RBC (Bld) 5.28 10*6/uL (no code) 4.2 - 6.1 03-09-2017 Not Avail able [#/Vol] 10*6/uL 23:26-0400 (43564) WBC (Bld) 12.01 10*3/uL (H) 3.5 - 10.5 03-09-2017 Not Chelo ilable [#/Vol] 10*3/uL 23:0400 (20743) Vital Signs The data below is from unstructured sources Vital Response Date/Time Temperature (Fahrenheit) 97.2 degree s F (97.6 - 99.5) 04/30/2018 7:17pm Temperature (Calculated Celsius) 36. 40319 degrees C (36.4 - 37.5) 04/30/2018 7:17pm Temperature Source Tympanic 04/30/2018 7:17pm Pulse Rate (adult) 60 bpm (60 - 90) 04/30/2018 7:17pm Respiratory Rate 19 bpm (12 - 24) 04/30/2018 7:17pm O2 Sat by Pulse Oximetry 100 % (88 - 100) 04/30/2018 7:17pm Blood Pressure 139/81 mm Hg 04/30/2018 7:17pm Blood Pressure Mean 97 mm Hg (65 - 110) 04/30/2018 7:17pm Pain Numeric Pain Scale 0-No Pain 04/30/2018 7:17pm Height (Feet) 5 feet 09/2018 5:49pm Height (Inches) 7 inches 04/30/2018 5:49pm Height (Calculated Centimeters) 170. 619535 cm 04/30/2018 5:49pm Height Method Stated 09/2018 5:49pm Weight (Pounds) 155 pounds 04/30/2018 5:49pm Weight (Calculated Grams) 55607.82 gm 04/30/2018 5:49pm Weight (Calculated Kilograms) 70.306 818 kilograms 04/30/2018 5:49pm Calculated BMI 25.84 09/2018 5:49pm Weight Method Stated 09/2018 5:49pm Capillary Refill Capillary Refill Less Than 3 Seconds 04/30/2018 5:49pm Interventions No Information Plan of Treatment The data below is from unstructured sources Activity Details Follow Up prn Reason: Discharge Date 04/30/18 7:18pm Disposition 01 HOME, SELF-CARE Condition at Discharge Stable Instructions/Education Provided ALCO HOL AND SUBSTANCE ABUSE Prescriptions See Medication Section Referrals BELTRAN CARRINGTON DO Order Date: Primary Care Physician Address: [address] [place] [phone] Additional Instructions/Education NO DRUGS!! NO ALCOHOL!! YOU MAY CONTACT [facility] AT [phone] OR [facility] AT [phone] FOR ADDICTION TREATMENT All discharge instructions reviewed with patient and/or family. Voiced understanding. Discharge Date 04/30/18 7:18pm Disposition 01 HOME, SELF-CARE Condition at Discharge Stable Instructions/Education Provided ALCO HOL AND SUBSTANCE ABUSE Prescriptions See Medication Section Referrals BELTRAN CARRINGTON DO Order Date: Primary Care Physician Address: [address] [place] [phone] Additional Instructions/Education NO DRUGS!! NO ALCOHOL!! YOU MAY CONTACT [facility] AT [phone] OR [facility] AT [phone] FOR ADDICTION TREATMENT All discharge instructions reviewed with patient and/or family. Voiced understanding. Goals No Information Social History No Information Functional Status The data below is from unstructured sourcesNo functional status information available. Mental Status No Information Encounters Encounter Normalized Encounter Encounter Diagnosis Care Provi ketty Organization Date Type 04-30-2018 Emergency department no information [facility] no organization name - patient visit Phone: 04-30-2018 NEGATED Emergency department no information no name no organization name 05-05-2015 patient visit - 05-05-2015 04-30-2018 Patient encounter no information no name no or ganization name 03-21-2020 Patient encounter no information NONE PCP (no phone ) [facility] (no phone) 06-16-2019 Patient encounter no information no name no or ganization name procedure 05-20-2019 Patient encounter no information no name no or ganization name procedure 03-09-2017 Patient encounter no information no name no or ganization name - procedure 03-10-2017 Medical Equipment No Information Payers Normalized Payer Value [id number] ([id number]) Self-pay no information Advance Directives Directive Response Recor ded Date/Time Advance Directives No 5:54pm Resuscitation Status Full Code 04/30/18 5:54pm Discharge Instructions No hospital discharge instruction information available. Additional Source Comments This clinical document has been generated using [employer] software that has been certified by the Office of the National Coordinator for Health Information Technology (ONC 15.99.04.3023.Diam.[id number]) and the National Committee for Surveyor Instrument Assistant (NCQA, as an eMeasure certified technology). FOR RECORDS PERTAINING TO PATIENTS WHO ARE OR HAVE BEEN ENROLLED IN A CHEMICAL D EPENDENCY/SUBSTANCE ABUSE PROGRAM, SOME INFORMATION MAY BE OMITTED. This clinica l summary was aggregated from multiple sources. Caution should be exercised in using it in the provision of clinical care. This summary normalizes information from multiple sources, and as a consequence, information in this document may ma terially change the coding, format and clinical context of patient data. In jacque tion, data may be omitted in some cases. CLINICAL DECISIONS SHOULD BE BASED ON T HE PRIMARY CLINICAL RECORDS. [employer]. provides no warranty or guara ntee of the accuracy or completeness of information in this document.The followi ng information is based on time limited clinical information
--- OUTSIDE RECORDS SUMMARY | 2020-04-02 18:22 | XMS REPORT ---
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 [id number] [address] Jun, [facility] [address] [facility] [id number] [address], [place] [address] 08 Jun, 2017 Impetigo L01.00 ; Herpes sim plex infection of penis A60.01 and Screening for STD sexually transmitted disease Z11.3 IMMUNIZATIONS No Known Immunizations SOCIAL HISTORY Never Assessed REASON FOR VISIT left groin pain since yesterday. pt can feel a "knot" there. hurts when he coughs...thinks he has a hernia. berny, pt wants std testing. slept with unknown female 2 times over the past month...now when he masturbates...he rubs himself raw. PLAN OF CARE Activity Details Follow Up prn Reason: VITAL SIGNS Height 67 in 2017-06-27 Weight 153.4 lbs 2017-06-27 Temperature 98.2 degrees Fahrenheit 2017-06-27 Heart Rate 74 bpm 2017-06-27 Respiratory Rate 20 2017-06-27 BMI 24.02 kg/m2 2017-06-27 Blood pressure systolic 122 mmHg 2017-06-27 Blood pressure diastolic 76 mmHg 2017-06-27 MEDICATIONS Medication Instructions Dosage Frequency Start Date End Date Duration S tatus Keflex 500 MG Orally every 12 hrs 1 capsule 12h Jun, Jun, 10 day(s) Active Acyclovir 400 MG Orally Three times a day 1 tablet 8h Jun, 7 days Active RESULTS Name Result Date Reference Range CULTURE, VIRAL (HSV W/ TYPING) 2017-06-27 HSV Culture/Type HSV 1/2 ANTIBODY IgM 2017-06-27 HSV 1 IgM Antibodies <1:10 <1:10 HSV 2 IgM Antibodies <1:10 <1:10 GC/CHLAM URINE (STATE) 2017-06-27 CHLAMYDIA negative GC negative HEP C ANTIBODY (STATE) RESULTS non reactive SYPHILIS (STATE) HIV (STATE) HEP B SURFACE ANTIGEN (STATE) HEP B ANTIBODY non reactive HEP B ANTIBODY (RML) HEP B ANTIBODY (STATE) PROCEDURES Procedure Date Ordered Result Body Site No Charge Jun 27, 2017 VINNIE VIRUS ISOLATE, HSV Jun 27, 2017 HERPES SIMPLEX TEST Jun 27, 2017 HERPES SIMPLEX TYPE 2 Jun 27, 2017 VENIPUNCT, ROUTINE* Jun 27, 2017 INSTRUCTIONS MEDICATIONS ADMINISTERED No Known Medications
[2020-04-02 18:35] LABS: BILIRUBIN,URINE NEGATIVE (NEGATIVE); CLARITY,URINE CLEAR; COLOR,URINE YELLOW; GLUCOSE, URINE (UA) NEGATIVE (NEGATIVE); KETONES,URINE NEGATIVE (NEGATIVE); LEUKOCYTE ESTERASE ,URINE NEGATIVE (NEGATIVE); NITRITE,URINE NEGATIVE (NEGATIVE); PROTEIN,URINE NEGATIVE (NEGATIVE)
[2020-04-02 18:35] LABS: ABG BASE EXCESS -1.9 MMOL/L (-2.5-2.5); ABG OXYGEN SATURATION 100 % (94-100); ABG PCO2 41 MMHG (35-45); ABG PH 7.36 (7.37-7.43); ABG PO2 562 MMHG (79-93); ABG TCO2 24.3 MMOL/L (21.0-31.0)
[2020-04-02 18:36] LABS: BASOPHILS % (AUTO) 0 % (0-10); EOSINOPHILS # (AUTO) 0.4 10^3/uL (0.0-0.3); EOSINOPHILS % (AUTO) 3 % (0-10); HEMATOCRIT 45 % (40-54); HEMOGLOBIN 16.1 G/DL (13.3-17.7); LYMPHOCYTES # (AUTO) 3.4 X 10^3 (1.0-4.0); LYMPHOCYTES % (AUTO) 23 % (12-44); MEAN CORPUSCULAR HEMOGLOBIN 32 PG (25-34); MEAN CORPUSCULAR HGB CONC 36 G/DL (32-36); MEAN CORPUSCULAR VOLUME 89 FL (80-99); MEAN PLATELET VOLUME 10.1 FL (7.4-10.4); MONOCYTES # (AUTO) 0.9 X 10^3 (0.0-1.0); MONOCYTES % (AUTO) 6 % (0-12); NEUTROPHILS # (AUTO) 9.9 X 10^3 (1.8-7.8); NEUTROPHILS % (AUTO) 68 % (42-75); PLATELET COUNT 211 10^3/uL (130-400); RED CELL DISTRIBUTION WIDTH 13.3 % (10.0-14.5); WHITE BLOOD COUNT 14.5 10^3/uL (4.3-11.0)
[2020-04-02 18:38] LABS: ALLENS TEST YES-POS; INSPIRED O2 100%; PATIENT TEMP 96.2; VENTILATOR YES
[2020-04-02 18:42] LABS: BACTERIA,URINE NEGATIVE /HPF; HYALINE CASTS, URINE RARE /LPF; SQUAMOUS EPITHELIAL CELL,UR RARE /HPF
[2020-04-02 18:45] LABS: BENZODIAZEPINES SCREEN URINE NEGATIVE (NEGATIVE)
[2020-04-02 18:46] LABS: AMPHETAMINE SCREEN, URINE POSITIVE (NEGATIVE); BARBITURATE SCREEN URINE NEGATIVE (NEGATIVE); CANNABINOID SCREEN, URINE POSITIVE (NEGATIVE); COCAINE SCREEN URINE NEGATIVE (NEGATIVE); METHADONE STAT NEGATIVE (NEGATIVE); METHAMPHETAMINE SCREEN URINE S POSITIVE (NEGATIVE); OPIATE SCREEN URINE NEGATIVE (NEGATIVE); OXYCODONE STAT NEGATIVE (NEGATIVE); PROPOXYPHENE STAT NEGATIVE (NEGATIVE); TRICYCLIC ANTIDEPRESSANTS SCRE NEGATIVE (NEGATIVE)
[2020-04-02 18:48] LABS: CHLORIDE 105 MMOL/L (98-107); POTASSIUM 3.7 MMOL/L (3.6-5.0); SODIUM 137 MMOL/L (135-145)
[2020-04-02 18:49] LABS: ALBUMIN 4.3 GM/DL (3.2-4.5)
[2020-04-02 18:50] LABS: CALCIUM 8.6 MG/DL (8.5-10.1)
[2020-04-02 18:51] LABS: GLUCOSE 101 MG/DL (70-105); TOTAL PROTEIN 6.5 GM/DL (6.4-8.2)
[2020-04-02 18:52] LABS: CARBON DIOXIDE 20 MMOL/L (21-32)
[2020-04-02 18:53] LABS: BILIRUBIN,TOTAL 0.4 MG/DL (0.1-1.0)
[2020-04-02 18:54] LABS: BAND NEUTROPHILS 1 %; BASOPHILS % (MANUAL) 0 %; EOSINOPHILS % (MANUAL) 1 %; LYMPHOCYTES % (MANUAL) 18 %; MONOCYTES % (MANUAL) 5 %; NEUTROPHILS % (MANUAL) 71 %; RBC MORPH NORMAL; REACTIVE LYMPHOCYTES 4 %
[2020-04-02 18:55] LABS: ALKALINE PHOSPHATASE 64 U/L (40-136); CREATININE SERUM 1.04 MG/DL (0.60-1.30); GFR ESTIMATED > 60
[2020-04-02 18:56] LABS: ACETAMINOPHEN < 10 UG/ML (10-30); BUN/CREATININE RATIO 15; ERYTHROCYTE SEDIMENTATION RATE 1 MM/HR (0-15)
[2020-04-02 18:58] LABS: ALANINE AMINOTRANSFERASE 37 U/L (0-55); MAGNESIUM 2.1 MG/DL (1.6-2.4)
--- NOTE | 2020-04-02 19:00 | ED General ---
General Chief Complaint: Unresponsive Stated Complaint: UNRESPONSIVE Nursing Triage Note: ARRIVED VIA EMS FROM HOME. FOUND UNRESPONSIVE BY FAMILY. LAST WELL KNOWN TIME WAS 2HR PRIOR TO CALLING EMS. PT HAS HX OF OVERDOSES. PT ARRIVED INTUBATED AND BEING BAGGED BY EMS. EMS REPORTS GIVING 4MG NARCON WITH NO REACTION. Nursing Sepsis Screen: No Definite Risk Source of Information: EMS Exam Limitations: Physical Impairments History of Present Illness Date Seen by Provider: Apr 02, 2020 Time Seen by Provider: 18:10 Initial Comments To ER by [facility] with reports of unresponsiveness. The girlfriend had seen him well 2 hours prior to calling EMS. She then found him on the bed unresponsive and summoned EMS. Upon their arrival he was noted to be unresponsive with constricted pupils, they gave 4 mg of Narcan without any change in mental status. He was intubated using 200 mg of succinylcholine, unknown amount of rocuronium at 1800 a size 8 endotracheal tube and bagged by hand in route to the hospital. History of drug use. Initially the girlfriend was unable to find her bottle of gabapentin but was then allegedly able to find her medicine. Timing/Duration: 1-3 Hours Severity: Severe Associated Systoms: Denies Symptoms Allergies and Home Medications Allergies Coded Allergies: No Known Drug Allergies (Unverified , 05/05/15) Home Medications Azithromycin 250 Mg Tablet, 250 MG PO DAILY Prescribed by: ELISEO SAUCEDO on 05/05/15 0304 Patient Home Medication List Home Medication List Reviewed: Yes Review of Systems Review of Systems Constitutional: see HPI, other (unable to obtain as he is intubated) EENTM: see HPI Past Mbnjnik-Bnutik-Elfmor Hx Patient Social History Alcohol Beverage of Choice: Beer Drug of Choice: TESTED + FOR AMPHETAMINES/METHAMPHETAMINES,THC, TRICYCLIC, BENZO'S 04/30/18 Type Used: Cigarettes Recent Foreign Travel: No Contact w/Someone Who Travel: No Recent Infectious Disease Expo: No Recent Hopitalizations: No Seasonal Allergies Seasonal Allergies: No Past Medical History Surgeries: Yes (BILAT EAR DRUM RECONSTRUCTION) Ear Surgery, Tonsillectomy Respiratory: Yes (heavy tobaccoism) Cardiac: No Neurological: No Reproductive Disorders: No Genitourinary: No Gastrointestinal: No Musculoskeletal: No Endocrine: No HEENT: Yes (EAR RECONSTRUCTION) Tonsilitis Hearing Impairment: Hard of Hearing Cancer: No Psychosocial: Yes (RX DRUG ABUSE) Integumentary: No Blood Disorders: No Physical Exam Vital Signs Vital Signs - First Documented 04/02/20 18:15 Temp 36.4 Pulse 69 Resp 20 B/P (MAP) 142/100 (114) Pulse Ox 98 O2 Delivery Mechanical Ventilator Capillary Refill : Less Than 3 Seconds Height, Weight, BMI Height: 5'7" Weight: 155lbs. oz. 70.822511by; 29.00 BMI Method:Stated General Appearance: No Apparent Distress, WD/WN, Other (intubated with size 8 endotracheal tube. Breath sounds equal bilaterally. Blood pressure is adequate at 129/73, heart rate 66 sinus no ectopy, he is not overbreathing the ventilator which has a rate set of 14 at this time, oxygen saturation 99%) Eyes: Bilateral Eye Normal Inspection, Bilateral Eye PERRL, Bilateral Eye EOMI, Bilateral Eye Other (no sign of head trauma or trauma anywhere for that matter) HEENT: Pharynx Normal, Other (pupils are constricted and unresponsive) Neck: Full Range of Motion, Normal Inspection Respiratory: No Accessory Muscle Use, No Respiratory Distress Cardiovascular: Regular Rate, Rhythm Gastrointestinal: Normal Bowel Sounds, Non Tender, Soft Extremity: Normal Capillary Refill, Normal Inspection Neurologic/Psychiatric: Alert, Oriented x3 Skin: Normal Color, Warm/Dry Focused Exam Lactate Level 04/02/20 18:30: Lactic Acid Level 0.41L Lactic Acid Level Laboratory Tests Test 04/02/20 18:30 Lactic Acid Level 0.41 MMOL/L (0.50-2.00) L Procedures/Interventions Date of ETT Placement: Apr 02, 2020 Tube Size: 8.00 Progress/Results/Core Measures Suspected Sepsis Recent Fever Within 48 Hours: No Infection Criteria Present: Suspected New Infection New/Unexplained Altered Menta: No Sepsis Screen: No Definite Risk SIRS Temperature: Pulse: 69 Respiratory Rate: 20 Laboratory Tests 04/02/20 18:30: White Blood Count 14.5H Blood Pressure 142 /100 Mean: 114 04/02/20 18:30: Lactic Acid Level 0.41L Laboratory Tests 04/02/20 18:30: Creatinine 1.04, Platelet Count 211, Total Bilirubin 0.4 Results/Orders Lab Results Laboratory Tests Test 04/02/20 18:27 04/02/20 18:30 Range/Units Blood Gas Puncture Site R RAD Blood Gas Patient Temperature 96.2 Arterial Blood pH 7.36 L 7.37-7.43 Arterial Blood Partial Pressure CO2 41 35-45 MMHG Arterial Blood Partial Pressure O2 562 H 79-93 MMHG Arterial Blood HCO3 23 23-27 MMOL/L Arterial Blood Total CO2 24.3 21.0-31.0 MMOL/L Arterial Blood Oxygen Saturation 100 94-100 % Arterial Blood Base Excess -1.9 -2.5-2.5 MMOL/L Dave Test YES-POS Blood Gas Ventilator Setting YES Blood Gas Inspired Oxygen 100% White Blood Count 14.5 H 4.3-11.0 10^3/uL Red Blood Count 5.10 4.35-5.85 10^6/uL Hemoglobin 16.1 13.3-17.7 G/DL Hematocrit 45 40-54 % Mean Corpuscular Volume 89 80-99 FL Mean Corpuscular Hemoglobin 32 25-34 PG Mean Corpuscular Hemoglobin Concent 36 32-36 G/DL Red Cell Distribution Width 13.3 10.0-14.5 % Platelet Count 211 130-400 10^3/uL Mean Platelet Volume 10.1 7.4-10.4 FL Neutrophils (%) (Auto) 68 42-75 % Lymphocytes (%) (Auto) 23 12-44 % Monocytes (%) (Auto) 6 0-12 % Eosinophils (%) (Auto) 3 0-10 % Basophils (%) (Auto) 0 0-10 % Neutrophils # (Auto) 9.9 H 1.8-7.8 X 10^3 Lymphocytes # (Auto) 3.4 1.0-4.0 X 10^3 Monocytes # (Auto) 0.9 0.0-1.0 X 10^3 Eosinophils # (Auto) 0.4 H 0.0-0.3 10^3/uL Basophils # (Auto) 0.0 0.0-0.1 10^3/uL Neutrophils % (Manual) 71 % Lymphocytes % (Manual) 18 % Monocytes % (Manual) 5 % Eosinophils % (Manual) 1 % Basophils % (Manual) 0 % Band Neutrophils 1 % Reactive Lymphocytes 4 % Blood Morphology Comment NORMAL Erythrocyte Sedimentation Rate 1 0-15 MM/HR D-Dimer < 0.27 0.00-0.49 UG/ML Urine Color YELLOW Urine Clarity CLEAR Urine pH 5.0 5-9 Urine Specific [place] 1.025 H 1.016-1.022 Urine Protein NEGATIVE NEGATIVE Urine Glucose (UA) NEGATIVE NEGATIVE Urine Ketones NEGATIVE NEGATIVE Urine Nitrite NEGATIVE NEGATIVE Urine Bilirubin NEGATIVE NEGATIVE Urine Urobilinogen 0.2 < = 1.0 MG/DL Urine Leukocyte Esterase NEGATIVE NEGATIVE Urine RBC (Auto) NEGATIVE NEGATIVE Urine RBC NONE /HPF Urine WBC NONE /HPF Urine Squamous Epithelial Cells RARE /HPF Urine Crystals NONE /LPF Urine Bacteria NEGATIVE /HPF Urine Casts PRESENT /LPF Urine Hyaline Casts RARE /LPF Urine Mucus SMALL H /LPF Urine Culture Indicated NO Sodium Level 137 135-145 MMOL/L Potassium Level 3.7 3.6-5.0 MMOL/L Chloride Level 105 98-107 MMOL/L Carbon Dioxide Level 20 L 21-32 MMOL/L Anion Gap 12 5-14 MMOL/L Blood Urea Nitrogen 16 7-18 MG/DL Creatinine 1.04 0.60-1.30 MG/DL Estimat Glomerular Filtration Rate > 60 BUN/Creatinine Ratio 15 Glucose Level 101 70-105 MG/DL Lactic Acid Level 0.41 L 0.50-2.00 MMOL/L Calcium Level 8.6 8.5-10.1 MG/DL Corrected Calcium 8.4 L 8.5-10.1 MG/DL Magnesium Level 2.1 1.6-2.4 MG/DL Total Bilirubin 0.4 0.1-1.0 MG/DL Aspartate Amino Transf (AST/SGOT) 30 5-34 U/L Alanine Aminotransferase (ALT/SGPT) 37 0-55 U/L Alkaline Phosphatase 64 40-136 U/L Lactate Dehydrogenase 218 125-220 U/L C-Reactive Protein High Sensitivity 0.35 0.00-0.50 MG/DL Total Protein 6.5 6.4-8.2 GM/DL Albumin 4.3 3.2-4.5 GM/DL Triglycerides Level 106 <150 MG/DL Procalcitonin 0.02 <0.10 NG/ML Urine Opiates Screen NEGATIVE NEGATIVE Urine Oxycodone Screen NEGATIVE NEGATIVE Urine Methadone Screen NEGATIVE NEGATIVE Urine Propoxyphene Screen NEGATIVE NEGATIVE Acetaminophen Level < 10 L 10-30 UG/ML Urine Barbiturates Screen NEGATIVE NEGATIVE Ur Tricyclic Antidepressants Screen NEGATIVE NEGATIVE Urine Phencyclidine Screen NEGATIVE NEGATIVE Urine Amphetamines Screen POSITIVE H NEGATIVE Urine Methamphetamines Screen POSITIVE H NEGATIVE Urine Benzodiazepines Screen NEGATIVE NEGATIVE Urine Cocaine Screen NEGATIVE NEGATIVE Urine Cannabinoids Screen POSITIVE H NEGATIVE Serum Alcohol < 10 <10 MG/DL My Orders Orders - MARIZA MONSON APRN Propofol Drip (Icu) (Diprivan Drip (Icu) (04/02/20 18:45) Triglycerides (04/02/20 18:42) Ct Head/Cervical Spine Wo (04/02/20 19:00) Ns Iv 1000 Ml (Sodium Chloride 0.9%) (04/02/20 19:40) Medications Given in ED Current Medications Medications Dose Ordered Sig/Sandra Route Start Time Stop Time Status Last Admin Dose Admin Lactated Ringer's 1,000 ml @ 0 mls/hr Q0M ONCE IV 04/02/20 18:21 04/02/20 18:24 DC 04/02/20 18:30 1,000 MLS/HR Sodium Chloride 1,000 ml @ ud STK-MED ONCE .ROUTE 04/02/20 19:40 04/02/20 19:42 DC 04/02/20 19:47 30 MLS/HR Vital Signs/I&O 04/02/20 04/02/20 18:15 19:09 Temp 36.4 Pulse 69 57 Resp 20 B/P (MAP) 142/100 (114) 124/75 Pulse Ox 98 O2 Delivery Mechanical Ventilator Capillary Refill : Less Than 3 Seconds Blood Pressure Mean: 114 Departure Communication (Admissions) Time/Spoke to Admitting Phy: 20:[address] Blackburn, will admit consult Dr. Gore. Dr. Gore would like a repeat ABG 30 minutes after arrival to ICU 1900-1 L of IV fluid from EMS, 1 L is hanging from us currently. ABG showed high CO2. This was after being bagged by hand on 100% FiO2 in route to the hospital. He is now intubated with a rate of 1450% FiO2 Peep of 5 he is not overbreathing the ventilator. 192-spoke with , updated them on his drug screen positive for methamphetamine. She is flabbergasted that he could be positive for that. 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 She states that the marijuana he smokes must have been laced with the methamphetamine. She doesn't know if he done any other drugs but assures me he wouldn't. She confirms that she was able to find her gabapentin and the pill count was correct. 2030-just now starting to overbreathing the vent, the rate is 14 and he has briefly had a respiratory rate up to 17 or 20. Heart rate remains 58, blood pressure 123/83. Ventilator settings remain the same. He is on a low dose of propofol. I updated [facility] physician. He does have a minimal but present gag reflex with deep oropharyngeal suctioning Impression Primary Impression: Altered mental status Qualified Codes: R41.82 - Altered mental status, unspecified Additional Impression: Dyspnea Disposition: ADMITTED INPATIENT Condition: Critical Admissions Decision to Admit Reason: Admit from ER (General) Decision to Admit/Date: Apr 02, 2020 Time/Decision to Admit Time: 18:59 Departure-Patient Inst. Referrals: BELTRAN CARRINGTON DO (PCP/Family) Primary Care Physician MARIZA MONSON APRN Apr 02, 2020 18:59
[2020-04-02] MEDS: PROPOFOL DRIP (ICU) 100 ML IV SCH (19:09)
[2020-04-02] MEDS ORDERED: NS IV 1000 ML 1,000 ML ONE (19:40)
--- NOTE | 2020-04-02 20:12 | Diagnostic Imaging Report ---
PROCEDURE: CT head and CT cervical spine without contrast. TECHNIQUE: Multiple contiguous axial images were obtained through the brain and cervical spine without the use of intravenous contrast. Sagittal and coronal reformations through the cervical spine were then performed. Auto Exposure Controls were utilized during the CT exam to meet ALARA standards for radiation dose reduction. INDICATION: Unresponsive. COMPARISON: 04/30/2018 FINDINGS: CT head: Ventricles and cortical sulci are normal in size and contour. There is no midline shift or mass-effect. No acute intra-axial hemorrhage is seen. There are no abnormal areas of increased or decreased density to suggest acute hemorrhage or edema. No extra-axial masses or collections are present. The bony calvarium is intact. The visualized paranasal sinuses show mild scattered mucosal thickening. The mastoid air cells are partially opacified on the right. CT cervical spine: Static alignment of the cervical spine is maintained. There is no significant anteroretrolisthesis. There is no evidence of jumped facets. Vertebral body heights are maintained. There is no acute fracture. No bony fragments are seen within the spinal canal. No significant degenerative changes are identified. Pre and paravertebral soft tissue structures are unremarkable. Included portions of the lung apices are clear. IMPRESSION: 1. No acute intracranial abnormality. No CT evidence of mass, acute infarct or intracranial hemorrhage. 2. No acute fracture or dislocation of the cervical spine. Dictated by: Dictated on workstation # [id number]
--- OUTSIDE RECORDS SUMMARY | 2020-04-02 20:42 | XMS REPORT ---
Author Author [employer] [facility] Address [address] [address] Care Team Providers Care Accountant Budget Name Role Phone RUTH ERIC Unavailable ERICRUTH Unavailable BELTRAN CARRINGTON Unavailable JENNY ROSA Unavailable Unavailable MYKEL THORNTON Unavailable Unavailable MYKEL THORNTON Unavailable Unavailable PCP, NONE Unavailable Unavailable DAYNA JENKINS, TITUS T Unavailable Unavailable AD BURCIAGA DO Unavailable Unavailable Unavailable Unavailable Unavailable Unavailable Unavailable Unavailable Unavailable Unavailable Allergies Normalized Allergy Reported Date of Reaction(s) Care Provider Facility Allergy Type classification allergen Allergy Onset no information Unclassified NO KNOWN DRUG NO KNOWN DRUG JENNY Not Available (4 sources.) ALLERGIES ALLERGIES BATTAGLNICOLASA (95246) Medications Medication Ingredient Drug Dose Dates Status [...] Problem(s) Recorded Problem Problem Sta tus Duration Residual Acquired 04-02-2020 - Episodic Active DO TEODORO LOPEZ Via codes; absence of [facility] unclassaugustin other organs Hospital - (2 sources.) [place] ([address]) Other lower Dyspnea Episodic Active BELTRAN Via [facility] respiratory SPRADAM [address] Hospital disease (1 [place] source.) ([address]) Substance-rela Illicit drug 04-02-2020 - Chronic Active EDDIEU A [facility] Via shoaib disorders use [facility] MCINTOSH (14 sources.) Translations: [facility] - [ OTHER [place] PSYCHOACTIVE (24392) SUBSTANCE ABUSE, UNCO, OTHER STIMULANT ABUSE, UNCOMPLICATED, CANNABIS ABUSE, UNCOMPLICATED, NICOTINE DEPENDENCE, CIGARETTES, UNCOMPL, TOBACCO USE DISORDER, CANNABIS ABUSE, UNSPECIFIED USE, OTHER STIMULANT ABUSE, UNCOMPLICATED, CANNABIS ABUSE, UNCOMPLICATED, NICOTINE DEPENDENCE, CIGARETTES, UNCOMPL] 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 TITUS [facility] Via white blood Translations: [place] [facility] cells (4 [ [facility] - sources.) LEUKOCYTOSIS, [place] UNSPECIFIED] (16195) Nausea and Nausea 04-02-2020 - Episodic Active TITUS [facility] Via vomiting (4 Translations: [place] MCINTOSH sources.) [ NAUSEA [facility] - ALONE] [place] () Malaise and Other malaise 04-02-2020 - Episodic Active TITUS [facility] Via fatigue (9 and fatigue [place] MCINTOSH sources.) Translations: [facility] - [ OTHER [place] FATIGUE, OTHER (66741) MALAISE AND FATIGUE] Other lower Other 04-02-2020 - Episodic Active TITUS [facility] Via respiratory respiratory [place] MCINTOSH disease (3 abnormalities [facility] - sources.) [place] ([address]) Cardiac Palpitations 04-02-2020 - Episodic Active TITUS V [facility] Via dysrhythmias Translations: [place] MCINTOSH (5 sources.) [ [facility] - PALPITATIONS] [place] ([address]) Past or Other Problems Problem Normalized Date Last Normalized Normalized Provider Fa cility Classification Problem(s) Recorded Problem Problem Sta tus Duration Unclassified no information no information no information LYNNE BULL Via [place] (1 source.) ZEB [id number] [facility] (32153) Procedures Procedure Normalized Procedure Procedure Result Performer Facility Date 04-30-2018 Computed tomography of no information AD BURCIAGA Via [facility] head without contrast [place] ([address]) 04-30-2018 Electrocardiographic no information AD BURCIAGA Vi a [facility] procedure [place] ([address]) Immunizations Normalized Immunization Date Notes Care Provider Facili ty Immunization Vaccination no information BELTRAN CARRINGTON Via [facility] Translations: [ [address] [place] () vaccine] Results Test Name Value Interpretation Reference Range Date Time Fa cility (Normalized) (Normalized) (Medline Reference) not yet categorized on 2020-04-02 Arterial patency YES-POS (no code) 04-02-2020 PENDING L OCATION Wrist artery 14: [facility] (25928) --pre arterial puncture Body site R RAD (no code) 04-02-2020 PENDING LOCATI ON : [facility] (77425) Inhaled oxygen 100% (no code) 04-02-2020 PENDING LOC ATION flow rate : [facility] (88839) PROCALCITONIN 0.02 (NEG) 04-02-2020 PENDING LOCA TION (PCT) 14: [facility] (52952) Ventilation mode YES (no code) 04-02-2020 PENDING L OCATION Ventilator : [facility] (68506) laboratory on 2020-04-02 Acetaminophen ug/mL (L) 04-02-2020 PENDING LOCA TION [Mass/Vol] 14:0 [facility] (02566) Albumin 4.3 g/dL (NEG) 3.4 - 5.4 g/dL 04-02-2020 PENDING LOCATION [Mass/Vol] 14:0400 [facility] (87554) ALP [Catalytic 64 U/L (NEG) 44 - 147 U/L 04-02-2020 PEND ING LOCATION activity/Vol] 14:0 [facility] (77165) ALT [Catalytic 37 U/L (NEG) 4 - 40 U/L 04-02-2020 PENDIN G LOCATION activity/Vol] 14:0400 [facility] (95137) Amphetamines Positive (A) 04-02-2020 PENDING LOCAT ION Screen Ql (U) 14:0 [facility] (57331) Anion gap 12 mmol/L (NEG) 3 - 11 mmol/L 04-02-2020 PENDING LOCATION [Moles/Vol] 14:0400 [facility] (36614) AST [Catalytic 30 U/L (NEG) 10 - 34 U/L 04-02-2020 PENDI NG LOCATION activity/Vol] 14:0400 [facility] (95317) Bacteria LM Ql Negative (no code) 04-02-2020 PENDING LOC ATION (Urine sed) 14:0 [facility] (14039) Band form 1 % (no code) 0 - 3 % 04-02-2020 PENDING LOCA TION neutrophils/100 14:30-0400 [facility] (23382) WBC (Bld) Barbiturates Ql Negative (no code) 04-02-2020 PENDING LO CATION (U) 14:300400 [facility] (46250) Base excess Calc 1.9 mmol/L (NEG) -2 - 2 mmol/L 04-02-2020 PENDING LOCATION (Bld) 14:27-0400 [facility] ([id number]) [Moles/Vol] Basophils (Bld) 0.0 10*3/uL (NEG) 0 - 0.3 10*3/uL 04-02-2020 PENDING LOCATION [#/Vol] 14:30-0400 [facility] (46825) Basophils/100 0 % (no code) 0.5 - 1 % 04-02-2020 PENDING LOCATION WBC (Bld) 14:30-0400 [facility] (69077) Benzodiazepines Negative (no code) 04-02-2020 PENDING LO CATION Ql (U) 14:30-0400 [facility] (18614) Bilirubin 0.4 mg/dL (NEG) 0.1 - 1.2 mg/dL 04-02-2020 PENDIN G LOCATION [Mass/Vol] 14:30-0400 [facility] (01445) Bilirubin Ql (U) Negative (no code) 04-02-2020 PENDING L OCATION 14:30-0400 [facility] (16729) Calcium 8.6 mg/dL (NEG) 8.5 - 10.2 mg/dL 04-02-2020 PENDI NG LOCATION [Mass/Vol] 14:30-0400 [facility] (14138) Calcium 8.4 mg/dL (L) 8.5 - 10.2 mg/dL 04-02-2020 PENDI NG LOCATION [Mass/Vol] 14:30-0400 [facility] (16846) Cannabinoids Positive (A) 04-02-2020 PENDING LOCAT ION Screen Ql (U) 14:30-0400 [facility] ([id number]) Casts LM Ql PRESENT (no code) 04-02-2020 PENDING LOCATI ON (Urine sed) 14:30-0400 [facility] (57062) Chloride 105 mmol/L (NEG) 95 - 106 mmol/L 04-02-2020 PENDI NG LOCATION [Moles/Vol] 14:30-0400 [facility] (40949) Clarity (U) CLEAR (no code) 04-02-2020 PENDING LOCATI ON 14:30-0400 [facility] (57722) CO2 (Bld) 41 mm[Hg] (NEG) 35 - 45 mm[Hg] 04-02-2020 PENDING LOCATION [Partial 14:27-0400 [facility] (86409) pressure] CO2 [Moles/Vol] 24.3 mmol/L (NEG) 23 - 29 mmol/L 04-02-2020 PENDING LOCATION 14:27-0400 [facility] (43062) CO2 [Moles/Vol] 20 mmol/L (L) 23 - 29 mmol/L 04-02-2020 P ENDING LOCATION 14:30-0400 [facility] (89329) Cocaine Ql (U) Negative (no code) 04-02-2020 PENDING LOC ATION 14:30-0400 [facility] (16083) Color (U) YELLOW (no code) 04-02-2020 PENDING LOCATI ON 14:30-0400 [facility] (74948) Creatinine 1.04 mg/dL (NEG) 04-02-2020 PENDING LOCATI ON [Mass/Vol] 14:30-0400 [facility] (77547) Creatinine and > (no code) 04-02-2020 PENDING LOC ATION Glomerular 14:30-0400 [facility] ([id number]) filtration rate.predicted panel - Serum, Plasma or Blood CRP [Mass/Vol] 0.35 (NEG) 04-02-2020 PENDING LOC ATION 14:30-0400 [facility] (11688) Crystals LM Ql NONE (no code) 04-02-2020 PENDING LOC ATION (Urine sed) 14:30-0400 [facility] (68544) Eosinophils 0.4 10*3/uL (H) 0.05 - 0.5 04-02-2020 PENDING LOCATION (Bld) [#/Vol] 10*3/uL 14:30-0400 [facility] (27069) Eosinophils/100 3 % (NEG) 1 - 4 % 04-02-2020 PENDIN G LOCATION WBC (Bld) 14:30-0400 [facility] (65862) Eosinophils/100 1 % (no code) 04-02-2020 PENDING LO CATION WBC (Nose) 14:30-0400 [facility] (33068) Epithelial RARE (no code) 04-02-2020 PENDING LOCATI ON cells.squamous 14:30-0400 [facility] (12533) LM Ql (Urine sed) Erythrocyte 13.3 % (NEG) 11.6 - 14.6 % 04-02-2020 PENDIN G LOCATION distribution 14:30-0400 [facility] (12412) width (RBC) [Ratio] ESR (Bld) 1 (NEG) 04-02-2020 PENDING LOCATI ON [Velocity] 14:30-0400 [facility] (37537) Ethanol mg/dL (NEG) 0 - 80 mg/dL 04-02-2020 PENDING L OCATION [Mass/Vol] 14:30-0400 [facility] (57961) Fibrin D-dimer < (NEG) 04-02-2020 PENDING LOC ATION FEU (PPP) 14:30-0400 [facility] (01577) [Mass/Vol] Glucose 101 mg/dL (NEG) 60 - 125 mg/dL 04-02-2020 PENDING LOCATION [Mass/Vol] 14:30-0400 [facility] (42997) Glucose Auto Negative (no code) 04-02-2020 PENDING LOCAT ION test strip Ql 14:30-0400 [facility] (48755) (U) HCO3 (Bld) 23 mmol/L (NEG) 22 - 28 mmol/L 04-02-2020 PENDIN G LOCATION [Moles/Vol] 14:27-0400 [facility] (31383) Hematocrit (Bld) 45 % (NEG) 36.1 - 50.3 % 04-02-2020 P ENDING LOCATION [Volume 14:30-0400 [facility] (98619) fraction] Hemoglobin (Bld) 16.1 g/dL (NEG) 12.1 - 17.2 g/dL 04-02-2020 PENDING LOCATION [Mass/Vol] 14:30-0400 [facility] (18207) Hyaline casts LM RARE (no code) 04-02-2020 PENDING L OCATION Ql (Urine sed) 14:30-0400 [facility] (59052) Ketones Auto Negative (no code) 04-02-2020 PENDING LOCAT ION test strip Ql 14:30-0400 [facility] (55275) (U) Lactate 0.41 mmol/L (L) 0.5 - 2.2 mmol/L 04-02-2020 [facility] LOCATION [Moles/Vol] 14:30-0400 [facility] (07193) LDH [Catalytic 218 U/L (NEG) 105 - 333 U/L 04-02-2020 [facility] LOCATION activity/Vol] 14:30-0400 [facility] (14197) Leukocyte Negative (no code) 04-02-2020 PENDING LOCATI ON esterase Test 14:300 [facility] (76050) strip Ql (U) Lymphocytes 3.4 10*3/uL (NEG) 0.9 - 2.9 04-02-2020 PENDING LOCATION (Bld) [#/Vol] 10*3/uL 14:300400 [facility] (46103) Lymphocytes/100 23 % (NEG) 20 - 40 % 04-02-2020 PENDIN LOCATION WBC (Bld) 14:300400 [facility] (30042) Lymphocytes/100 18 % (no code) 20 - 40 % 04-02-2020 [facility] LOCATION WBC (Bld) 14:300400 [facility] (20608) Magnesium 2.1 mg/dL (NEG) 1.7 - 2.2 mg/dL 04-02-2020 PENDIN LOCATION [Mass/Vol] 14:30-0400 [facility] (95566) MCH (RBC) 32 pg (NEG) 27 - 31 pg 04-02-2020 PENDING LOC ATION [Entitic mass] 14:30-0400 [facility] (12807) MCHC (RBC) 36 g/dL (NEG) 32 - 36 g/dL 04-02-2020 PENDING LOCATION [Mass/Vol] 14:30-0400 [facility] (97572) MCV (RBC) 89 (NEG) 04-02-2020 PENDING LOCATI ON [Entitic vol] 14:30-0400 [facility] (63226) Methadone Screen Negative (no code) 04-02-2020 PENDING L OCATION Ql (U) 14:0400 [facility] (61490) Methamphetamine Positive (A) 04-02-2020 PENDING LO CATION (U) [Mass/Vol] 14:300400 [facility] (14047) Monocytes (Bld) 0.9 10*3/uL (NEG) 0.3 - 0.9 04-02-2020 PEND ING LOCATION [#/Vol] 10*3/uL 14:30-0400 [facility] (56212) Monocytes/100 6 % (NEG) 2 - 8 % 04-02-2020 PENDING LOCATION WBC (Bld) 14:30-0400 [facility] (47590) Monocytes/100 5 % (no code) 2 - 8 % 04-02-2020 PENDING LOCATION WBC (Bld) 14:30-0400 [facility] (85263) Mucus Ql (Urine SMALL (A) 04-02-2020 PENDING LO CATION sed) 14:30-0400 [facility] (49906) Neutrophils 9.9 10*3/uL (H) 1.7 - 7 10*3/uL 04-02-2020 [facility] LOCATION (Bld) [#/Vol] 14:30-0400 [facility] (81878) Neutrophils/100 68 % (NEG) 40 - 60 % 04-02-2020 PENDIN G LOCATION WBC (Bld) 14:30-0400 [facility] (94165) Nitrite Ql (U) Negative (no code) 04-02-2020 PENDING LOC ATION 14:30-0400 [facility] (81721) Opiates Screen Negative (no code) 04-02-2020 PENDING LOC ATION Ql (U) 14:30-0400 [facility] (50092) Oxycodone Ql (U) Negative (no code) 04-02-2020 PENDING L OCATION 14:30-0400 [facility] (22163) Oxygen (Bld) 562 mm[Hg] (H) 75 - 100 mm[Hg] 04-02-2020 [facility] LOCATION [Partial 14:27-0400 [facility] (37832) pressure] pH (U) 5.0 [pH] (no code) 4.6 - 8 [pH] 04-02-2020 PENDING L OCATION 14:30-0400 [facility] (15111) pH adjusted to 7.36 (L) 04-02-2020 PENDING LOC ATION patient's actual 14:27-0400 [facility] (73648) temperature (BldA) Phencyclidine Ql Negative (no code) 04-02-2020 PENDING L OCATION (U) 14:30-0400 [facility] (92418) Platelet mean 10.1 (NEG) 04-02-2020 PENDING LOCA TION volume (Bld) 14:30-0400 [facility] (62806) [Entitic vol] Platelets (Bld) 211 10*3/uL (NEG) 150 - 450 04-02-2020 PEND ING LOCATION [#/Vol] 10*3/uL 14:30-0400 [facility] (67899) Potassium 3.7 mmol/L (NEG) 3.7 - 5.2 mmol/L 04-02-2020 PEND ING LOCATION [Moles/Vol] 14:30-0400 [facility] (79612) Propoxyphene Ql Negative (no code) 04-02-2020 PENDING LO CATION (U) 14:300400 [facility] (33388) Protein 6.5 g/dL (NEG) 6.4 - 8.3 g/dL 04-02-2020 PENDING LOCATION [Mass/Vol] 14:30-0400 [facility] (39337) Protein Ql (U) Negative (no code) 04-02-2020 PENDING LOC ATION 14:30-0400 [facility] (67496) RBC (Bld) 5.10 10*6/uL (NEG) 4.2 - 6.1 04-02-2020 PENDING L OCATION [#/Vol] 10*6/uL 14:30-0400 [facility] (88904) RBC LM.HPF NONE (no code) 04-02-2020 PENDING LOCATI ON (Urine sed) 14:30-0400 [facility] (57294) [#/Area] RBC morphology NORMAL (no code) 04-02-2020 PENDING LOC ATION finding Nom 14:30-0400 [facility] (63507) (Bld) RBC Ql (U) Negative (no code) 04-02-2020 PENDING LOCATI ON 14:30-0400 [facility] (53305) SaO2% (BldA) 100 (NEG) 04-02-2020 PENDING LOCAT ION [Mass fraction] 14:27-0400 [facility] (16140) Segmented 71 % (no code) 35 - 80 % 04-02-2020 PENDING LOCA TION neutrophils/100 14:30-0400 [facility] (27055) WBC (Bld) Sodium 137 mmol/L (NEG) 135 - 145 mmol/L 04-02-2020 PEND ING LOCATION [Moles/Vol] 14:30-0400 [facility] (35022) Specific gravity 1.025 (A) 04-02-2020 PENDING L OCATION (U) [Rel 14:30 [facility] (19415) density] Tricyclic Negative (no code) 04-02-2020 PENDING LOCATI ON antidepressants 14:300400 [facility] (80441) Screen Ql (U) Triglyceride 106 mg/dL (NEG) 0 - 150 mg/dL 04-02-2020 PENDI NG LOCATION [Mass/Vol] 14:300400 [facility] (15386) Urea nitrogen 16 mg/dL (NEG) 7 - 20 mg/dL 04-02-2020 PENDI NG LOCATION [Mass/Vol] 14:300400 [facility] (25283) Urea 15 mg/mg (no code) 6 - 22 mg/mg 04-02-2020 PENDING L OCATION nitrogen/Creatin 14:300400 [facility] (19599) ine [Mass ratio] Urinalysis NO (no code) 04-02-2020 PENDING LOCATI ON complete W 14:300 [facility] (99228) Reflex Culture panel - Urine Urobilinogen (U) 0.2 mg/dL (no code) 04-02-2020 PENDING L OCATION [Mass/Vol] 14:300400 [facility] (81305) Variant 4 % (no code) 0 - 1 % 04-02-2020 PENDING LOCA TION lymphocytes/100 14:30-0400 [facility] (27449) WBC (Bld) WBC (Bld) 14.5 10*3/uL (H) 3.5 - 10.5 04-02-2020 PENDING LOCATION [#/Vol] 10*3/uL 14:300400 [facility] (99678) WBC LM.HPF NONE (no code) 04-02-2020 PENDING LOCATI ON (Urine sed) 14:300400 [facility] (83947) [#/Area] venous blood hemoglobin measurement (mass/volume) on 2018-04-30 Hemoglobin (HGB) 16.8 g/dL (no code) 12 - 18 g/dL Via [facility] (19345) urine urobilinogen measurement by automated test strip (mass/volume) on 2018-04-30 Urine, 1 (no code) Via [facility] urobilinogen [facility] (12705) urine total bilirubin detection by test strip on 2018-04-30 Urine, bilirubin Negative (no code) Via [facility] (17541) urine protein assay by test strip, semi-quantitativ e on 2018-04-30 Urine, protein Negative (no code) Via [facility] (53865) urine ph measurement by test strip on 2018-04-30 Urine, pH 6.5 [pH] (no code) 4.6 - 8 [pH] Via [facility] (43028) urine nitrite detection by test strip on 2018-04-30 Urine, nitrite Negative (no code) Via [facility] (21169) urine ketones detection by automated test strip on 2018-04-30 Urine, ketones Negative (no code) Via [facility] (90800) urine glucose detection by automated test strip on 2018-04-30 Urine, glucose Negative (no code) Via [facility] (01764) urine color determination on 2018-04-30 Urine, color YELLOW (no code) Via [facility] (77942) urine clarity determination on 2018-04-30 Urine, clarity CLEAR (no code) Via [facility] (40364) squamous epithelial cells detection in urine sediment by light microscopy on 2018-04-30 Urine, squamous RARE (no code) Via [facility] cells [facility] in sediment [place] (86728) specific gravity of urine by test strip on 2018-04-30 Urine, specific 1.015 (*) Via [facility] gravity [facility] (72620) serum or plasma urea nitrogen/creatin ine mass ratio on 2018-04-30 BUN/Creatinine 8 mg/mg (no code) 10 - 20 mg/mg Via [facility] sti Ratio [facility] (83993) serum or plasma urea nitrogen measurement (mass/volume) on 2018-04-30 Urea nitrogen 8 mg/dL (no code) 7 - 20 mg/dL Via [facility] (65097) serum or plasma total bilirubin measurement (mass/volume) on 2018-04-30 Bilirubin 0.9 mg/dL (no code) 0.3 - 1.9 mg/dL Via [facility] (total) [facility] (75315) serum or plasma thyrotropin measurement by detection limit <=0.05 miu/l (units/volume) on 2018-04-30 Thyroid 0.91 m[IU]/L (no code) 0.4 - 4 m[IU]/L Via [facility] hormone (TSH) [place] (63079) serum or plasma sodium measurement (moles/volume) on 2018-04-30 Sodium 141 mmol/L (no code) 135 - 147 mmol/L Via [facility] (71673) serum or plasma salicylates measurement (mass/volume) on 2018-04-30 Salicylates no information (L) Via [facility] (58837) serum or plasma protein measurement (mass/volume) on 2018-04-30 Protein 7.0 g/dL (no code) 6.4 - 8.3 g/dL Via [facility] (88830) serum or plasma potassium measurement (moles/volume) on 2018-04-30 Potassium 3.6 mmol/L (no code) 3.5 - 5.1 mmol/L Via [facility] [address] (56474) serum or plasma glucose measurement (mass/volume) on 2018-04-30 Glucose 86 mg/dL (no code) 60 - 125 mg/dL Via [facility] (77089) serum or plasma creatinine measurement with calculation of estimated glomerular filtration rate on 2018-04-30 eGFR (non-black) no information (no code) Via [facility] (98367) serum or plasma creatinine measurement (mass/volume) on 2018-04-30 Creatinine 0.96 mg/dL (no code) Via [facility] (52275) serum or plasma chloride measurement (moles/volume) on 2018-04-30 Chloride 105 mmol/L (no code) 95 - 106 mmol/L Via [facility] (24805) serum or plasma calcium measurement (mass/volume) on 2018-04-30 Calcium 10.1 mg/dL (no code) 9 - 11 mg/dL Via [facility] (98536) serum or plasma aspartate aminotransferase measurement (enzymatic activity/volume) on 2018-04-30 Aspartate 20 U/L (no code) 10 - 34 U/L Via [facility] [place] (81840) serum or plasma anion gap determination (moles/volume) on 2018-04-30 Anion gap 10 mmol/L (no code) 3 - 11 mmol/L Via [facility] (22038) serum or plasma alkaline phosphatase measurement (enzymatic activity/volume) on 2018-04-30 Alkaline 74 U/L (no code) 44 - 147 U/L Via [facility] phosphatase [facility] (ALP) [place] (72870) serum or plasma albumin measurement (mass/volume) on 2018-04-30 Albumin 4.8 g/dL (H) 3.5 - 5.5 g/dL Via [facility] (68716) serum or plasma alanine aminotransferase measurement (enzymatic activity/volume) on 2018-04-30 Alanine 17 U/L (no code) 10 - 40 U/L Via [facility] aminotransferase [facility] (ALT) [place] (08621) serum or plasma acetaminophen measurement (mass/volume) on 2018-04-30 Serum or plasma no information (L) Via [facility] acetaminophen [facility] measurement [place] (mass/volume) (01443) mucus detection in urine sediment by light microscopy on 2018-04-30 Urine, mucus Negative (no code) Via [facility] presence in [facility] sediment [place] (11274) leukocyte esterase on 2018-04-30 Urine, leukocyte Negative (no code) Via [facility] esterase [facility] (99880) erythrocytes detection in urine sediment by light microscopy on 2018-04-30 Urine, Negative (no code) Via [facility] erythrocytes [facility] (62148) crystals detection in urine sediment by light microscopy on 2018-04-30 Urine, crystals NONE (no code) Via [facility] presence in [facility] sediment [place] (36196) complete urinalysis with reflex to culture on 2018-04-30 Complete NO (no code) Via [facility] urinalysis with Hospital reflex to [place] culture (79907) casts detection in urine sediment by light microscopy on 2018-04-30 Urine, casts in NONE (no code) Via [facility] (96688) carbon dioxide on 2018-04-30 CO2 26 mmol/L (no code) 23 - 29 mmol/L Via [facility] (76823) blood neutrophils automated count (number/volume) on 2018-04-30 Neutrophils 6.9 10*3/uL (no code) 1.5 - 7.8 Via [facility] 10*3/uL [facility] (76211) blood monocytes/100 leukocytes on 2018-04-30 Monocytes/100 6 % (no code) 2 - 8 % Via [facility] leukocytes [facility] (09273) blood monocytes automated count (number/volume) on 2018-04-30 Monocytes 0.7 10*3/uL (no code) 0.2 - 1.1 Via [facility] 10*3/uL [facility] (89026) blood lymphocytes automated count (number/volume) on 2018-04-30 Lymphocytes 3.2 10*3/uL (no code) 0.85 - 4.1 Via [facility] 10*3/uL [facility] (98854) blood leukocytes automated count (number/volume) on 2018-04-30 WBC (Leukocytes) 10.9 10*3/uL (no code) 3.8 - 10.8 Via [facility] 10*3/uL [facility] (08897) blood hematocrit (volume fraction) on 2018-04-30 Hematocrit (HCT) 46 % (no code) 39 - 51 % Via [facility] (71789) blood erythrocytes automated count (number/volume) on 2018-04-30 Erythrocytes 5.25 10*6/uL (no code) 4.2 - 6.1 Via [facility] (RBC) 10*6/uL [facility] (06089) bacteria detection in urine sediment by light microscopy on 2018-04-30 Urine, bacteria NONE (no code) Via [facility] in sediment [facility] (42405) automated urine sediment leukocyte count by microscopy (number/high power field) on 2018-04-30 Urine, NONE (no code) [facility] sediment erythrocyte count by microscopy (number/high power field) on 2018-04-30 Urine, NONE (no code) Via [facility] erythrocytes in [facility] sediment by [facility] (95245) automated erythrocyte mean corpuscular volume on 2018-04-30 MCV 88 fL (no code) 80 - 100 fL Via [facility] (96472) automated erythrocyte mean corpuscular hemoglobin concentration measurement (mass/volume) on 2018-04-30 MCHC 36 g/dL (no code) 32 - 36 g/dL Via [facility] (15497) automated erythrocyte mean corpuscular hemoglobin (mass per erythrocyte) on 2018-04-30 MCH 32 pg (no code) 27 - 31 pg Via [facility] (35321) automated erythrocyte distribution width ratio on 2018-04-30 RDW-CA 13.1 % (no code) 11 - 15 % Via [facility] (94241) automated eosinophil count on 2018-04-30 Eosinophils 0.1 10*3/uL (no code) 0.05 - 1.5 Via [facility] 10*3/uL [facility] (18497) automated blood platelet mean volume measurement on 2018-04-30 Platelet mean 10.1 fL (no code) 7.2 - 11.7 fL Via [facility] volume (PMV) [facility] (59237) automated blood platelet count (count/volume) on 2018-04-30 Platelets 189 10*3/uL (no code) 150 - 400 Via [facility] 10*3/uL [facility] (41714) automated blood neutrophils/100 leukocytes on 2018-04-30 Neutrophils/100 64 % (no code) 40 - 60 % Via [facility] (14397) automated blood lymphocytes/100 leukocytes on 2018-04-30 Lymphocytes/100 29 % (no code) 20 - 40 % Via [facility] (39987) automated blood eosinophils/100 leukocytes on 2018-04-30 Eosinophils/100 1 % (no code) 1 - 4 % Via [facility] (39210) automated blood basophils/100 leukocytes on 2018-04-30 Basophils/100 0 % (no code) 0.5 - 1 % Via [facility] (00454) automated blood basophil count (count/volume) on 2018-04-30 Basophils 0.0 10*3/uL (no code) 0 - 0.2 10*3/uL Via [facility] (89052) urinalysis on 2017-03-09 Amphetamines Ql Negative (no code) 03-09-2017 Not Availa ble (U) 23:27-0400 (38251) Barbiturates Negative (no code) 03-09-2017 Not Available Screen Ql (U) 23:27-0400 ([id number]) Clarity (U) Clear (no code) 03-09-2017 Not Available 23:29-0400 ([id number]) Cocaine Ql (U) Negative (no code) 03-09-2017 Not Availab le 23:27-0400 ([id number]) Color (U) Yellow (no code) 03-09-2017 Not Available 23:29-0400 ([id number]) Epithelial 0-5/HPF (A) 03-09-2017 Not Available cells.squamous 23:29-0400 ([id number]) LM.HPF (Urine sed) [#/Area] Leukocyte Negative (no code) 03-09-2017 Not Available esterase Test 23:29-0400 ([id number]) strip Ql (U) Phencyclidine Ql Negative (no code) 03-09-2017 Not Avail able (U) 23:27-0400 ([id number]) Protein (U) Negative (no code) 0 - 20 mg/dL 03-09-2017 Not Chelo ilable [Mass/Vol] 23:29-0400 (75911) RBC LM.HPF Negative (no code) 0 - 4 /[HPF] 03-09-2017 Not Avai lable (Urine sed) 23:29-0400 ([id number]) [#/Area] Specific gravity 1.010 (no code) 03-09-2017 Not Avail able (U) [Rel 23:29-0400 (03348) density] WBC LM.HPF Rare/HPF (A) 03-09-2017 Not Available (Urine sed) 23:29-0400 ([id number]) [#/Area] other on 2017-03-09 Acetaminophen 2 (no code) 03-09-2017 Not Availabl e [Mass/Vol] 23:29-0400 ([id number]) Albumin BCG dye 4.2 (no code) 03-09-2017 Not Availa ble [Mass/Vol] 23:27-0400 (80161) Bacteria LM Ql Negative (no code) 03-09-2017 Not Availab le (Urine sed) 23:29-0400 ([id number]) Benzodiazepine Negative (no code) 03-09-2017 Not Availab le metabolites 23:27-0400 ([id number]) Screen Ql (U) Bilirubin N/A (A) 03-09-2017 Not Available Confirm Ql (U) 23:29-0400 ([id number]) Bilirubin Ql (U) Negative (no code) 03-09-2017 Not Avail able 23:29-0400 (80240) Carboxy Positive (AA) 03-09-2017 Not Available tetrahydrocannab 23:27-0400 ([id number]) inol Ql (U) Electrocardiogra Complete (no code) 03-09-2017 Not Avail able ms recorded 23:27-0400 (68244) Erythrocyte 12.9 % (no code) 11.6 - 14.6 % 03-09-2017 Not Av ailable distribution 23:-0400 (18240) width (RBC) [Ratio] Ethanol Ql (U) <10.0 (no code) 03-09-2017 Not Availab le 23:27-0400 (37872) GFR/1.73 sq 100 (no code) 90 - 120 03-09-2017 Not Availa ble M.predicted MDRD mL/min/{1.73_m2} mL/min/{1.73_m2} 23:27-0400 (18758) (S/P/Bld) [Vol rate/Area] Globulin (S) 3.8 g/dL (H) 2 - 3.5 g/dL 03-09-2017 Not Av ailable [Mass/Vol] 23:27-0400 ([id number]) Glucose Test Negative (no code) 03-09-2017 Not Available strip (U) 23:29-0400 (73717) [Mass/Vol] HCO3 (P) 25 (no code) 03-09-2017 Not Available [Moles/Vol] 23:27-0400 ([id number]) Hemoglobin Ql Negative (no code) 03-09-2017 Not Availabl e (U) 23:29-0400 (46956) Ketones (U) Negative (no code) 03-09-2017 Not Available [Mass/Vol] 23:29-0400 ([id number]) MCHC (RBC) 34.3 g/dL (no code) 32 - 36 g/dL 03-09-2017 Not Avai lable [Mass/Vol] 23:26-0400 (23084) Methylenedioxyme Negative (no code) 03-09-2017 Not Avail able thamphetamine 23:27-0400 (78435) Screen Ql (U) Nitrite Ql (U) Negative (no code) 03-09-2017 Not Availab le 23:29-0400 (02341) Opiates Screen Negative (no code) 03-09-2017 Not Availab le Ql (U) 23:27-0400 (46934) Osmolality Calc 289 (no code) 03-09-2017 Not Availa ble [Osmolality] 23:27-0400 (14473) Oxycodone Ql (U) Positive (AA) 03-09-2017 Not Avail able 23:27-0400 (41827) pH (U) 7.0 [pH] (no code) 4.6 - 8 [pH] 03-09-2017 Not Avail able 23:29-0400 (07351) Platelet mean 10.3 fL (H) 7.2 - 11.7 fL 03-09-2017 Not Available volume (Bld) 23:26-0400 (19935) [Entitic vol] Propoxyphene Ql Negative (no code) 03-09-2017 Not Availa ble (U) 23:27-0400 (74636) Salicylates <50 (no code) 03-09-2017 Not Available [Mass/Vol] 23:29-0400 (35747) Tricyclic Negative (no code) 03-09-2017 Not Available antidepressants 23:27-0400 (91217) Ql (U) Urine Volume Urine Volume (no code) 03-09-2017 Not Availabl e Sufficient 23:29-0400 (17428) (10mL) Urobilinogen Qn 0.2 (no code) 03-09-2017 Not Availa ble (U) 23:29-0400 (69962) Yeast.budding Ql No Yeast present (no code) 03-09-2017 Not Available (Urine sed) 23:29-0400 (85884) no information Urine Saved if (A) 03-09-2017 Not Avai lable Culture Needed 23:29-0400 (73510) (48hrs from time of collection) metabolic panel on 2017-03-09 ALP [Catalytic 87 U/L (no code) 44 - 147 U/L 03-09-2017 Not Available activity/Vol] 23:27-0400 (28792) ALT [Catalytic 36 U/L (no code) 4 - 40 U/L 03-09-2017 Not Av ailable activity/Vol] 23:-0400 (64936) Anion gap 16 mmol/L (H) 3 - 11 mmol/L 03-09-2017 Not Avai lable [Moles/Vol] 23:-0400 (74577) AST [Catalytic 28 U/L (no code) 10 - 34 U/L 03-09-2017 Not A vailable activity/Vol] 23: (54149) Bilirubin 0.2 mg/dL (no code) 0.1 - 1.2 mg/dL 03-09-2017 Not Av ailable [Mass/Vol] 23: (17307) Calcium 9.9 mg/dL (no code) 8.5 - 10.2 mg/dL 03-09-2017 Not A vailable [Mass/Vol] 23: (98105) Chloride 103 mmol/L (no code) 95 - 106 mmol/L 03-09-2017 Not A vailable [Moles/Vol] : (46536) Creatinine 0.92 mg/dL (no code) 03-09-2017 Not Available [Mass/Vol] 23: (42872) Glucose 100 mg/dL (no code) 60 - 125 mg/dL 03-09-2017 Not Chelo ilable [Mass/Vol] 23: (34869) Potassium 3.5 mmol/L (no code) 3.7 - 5.2 mmol/L 03-09-2017 Not Available [Moles/Vol] 23: (98871) Protein 8.0 g/dL (no code) 6.4 - 8.3 g/dL 03-09-2017 Not Chelo ilable [Mass/Vol] 23: (71171) Sodium 140 mmol/L (no code) 135 - 145 mmol/L 03-09-2017 Not Available [Moles/Vol] 23: (72732) Urea nitrogen 12 mg/dL (no code) 7 - 20 mg/dL 03-09-2017 Not A vailable [Mass/Vol] 23: (63214) hematology on 2017-03-09 Basophils (Bld) 0.0 10*3/uL (no code) 0 - 0.3 10*3/uL 03-09-2017 Not Available [#/Vol] 23: (05304) Basophils/100 0.10 % (no code) 0.5 - 1 % 03-09-2017 Not Avai lable WBC (Bld) 23:0 (35686) Eosinophils 0.2 10*3/uL (no code) 0.05 - 0.5 03-09-2017 Not Chelo ilable (Bld) [#/Vol] 10*3/uL 23:0400 (35617) Eosinophils/100 1.6 % (no code) 1 - 4 % 03-09-2017 Not Av ailable WBC (Bld) 23: (69522) Hematocrit (Bld) 47.0 % (no code) 36.1 - 50.3 % 03-09-2017 N ot Available [Volume 23: (48546) fraction] Hemoglobin (Bld) 16.1 g/dL (no code) 12.1 - 17.2 g/dL 03-09-2017 Not Available [Mass/Vol] 23: (58088) Lymphocytes 3.12 10*3/uL (no code) 0.9 - 2.9 03-09-2017 Not Chelo ilable (Bld) [#/Vol] 10*3/uL 23: (59915) Lymphocytes/100 26.0 % (no code) 20 - 40 % 03-09-2017 Not Av ailable WBC (Bld) 23:0400 (51288) MCH (RBC) 30.5 pg (no code) 27 - 31 pg 03-09-2017 Not Availab le [Entitic mass] 23:0400 (09889) MCV (RBC) 89.0 fL (no code) 80 - 100 fL 03-09-2017 Not Availa ble [Entitic vol] 23:0400 (83125) Monocytes (Bld) 0.8 10*3/uL (no code) 0.3 - 0.9 03-09-2017 Not Available [#/Vol] 10*3/uL 23:0400 (04899) Monocytes/100 6.6 % (no code) 2 - 8 % 03-09-2017 Not Avai lable WBC (Bld) 23:0400 (85408) Neutrophils 7.90 10*3/uL (H) 1.7 - 7 10*3/uL 03-09-2017 N ot Available (Bld) [#/Vol] 23:26-0400 ([id number]) Neutrophils/100 65.7 % (no code) 40 - 60 % 03-09-2017 Not Av ailable WBC (Bld) 23:-0400 (66587) Platelets (Bld) 198 10*3/uL (no code) 150 - 450 03-09-2017 Not Available [#/Vol] 10*3/uL 23:0400 (90288) RBC (Bld) 5.28 10*6/uL (no code) 4.2 - 6.1 03-09-2017 Not Avail able [#/Vol] 10*6/uL 23:26-0400 (20274) WBC (Bld) 12.01 10*3/uL (H) 3.5 - 10.5 03-09-2017 Not Chelo ilable [#/Vol] 10*3/uL 23:0400 (55347) Vital Signs Vital Sign Value Interpretation Reference Date Time Care Prov ider Facility (Normalized) (Normalized) Range Body 96.2 (no code) 04-02-2020 no name PENDING temperature 14:27-0400 LOCATION [facility] (14333) Interventions No Information Plan of Treatment The data below is from unstructured sources Activity Details Follow Up prn Reason: Discharge Date 04/30/18 7:18pm Disposition 01 HOME, SELF-CARE Condition at Discharge Stable Instructions/Education Provided ALCO HOL AND SUBSTANCE ABUSE Prescriptions See Medication Section Referrals BELRTAN CARRINGTON DO Order Date: Primary Care Physician Address: [address] [place] [phone] Additional Instructions/Education NO DRUGS!! NO ALCOHOL!! YOU MAY CONTACT [facility] AT [phone] OR [facility] AT [phone] FOR ADDICTION TREATMENT All discharge instructions reviewed with patient and/or family. Voiced understanding. Discharge Date 04/30/18 7:18pm Disposition 01 HOME, SELF-CARE Condition at Discharge Stable Instructions/Education Provided ALCO HOL AND SUBSTANCE ABUSE Prescriptions See Medication Section Referrals BELTRAN CARRINGTON DO Order Date: Primary Care Physician Address: [address] [place] [address] Additional Instructions/Education NO DRUGS!! NO ALCOHOL!! YOU MAY CONTACT [facility] AT [phone] OR [facility] AT [phone] FOR ADDICTION TREATMENT All discharge instructions reviewed with patient and/or family. Voiced understanding. Goals No Information Social History No Information Functional Status The data below is from unstructured sourcesNo functional status information available. Mental Status No Information Encounters Encounter Normalized Encounter Encounter Diagnosis Care Provi ketty Organization Date Type 04-02-2020 Emergency department no information [facility] [address] patient visit (no phone) [facility] (no phone) 04-30-2018 Emergency department no information AD Lizzeth Howell k no organization name - patient visit Phone: 04-30-2018 04-30-2018 Emergency department no information AD BURCIAGA DO (no [facility] [address] - patient visit phone) [facility] 04-30-2018 (no phone) NEGATED Emergency department no information no name no organization name 05-05-2015 patient visit - 05-05-2015 05-04-2015 Emergency department no information [facility] [address] - patient visit (no phone) [facility] 05-04-2015 (no phone) 04-30-2018 Patient encounter no information no name no or ganization name 03-21-2020 Patient encounter no information NONE PCP (no phone ) [facility] (no phone) 06-16-2019 Patient encounter no information no name no or ganization name procedure 05-20-2019 Patient encounter no information no name no or ganization name procedure 03-09-2017 Patient encounter no information no name no or ganization name - procedure 03-10-2017 Medical Equipment No Information Payers Normalized Payer Value [facility] [id number] ([id number]) Self-pay no information Advance Directives Directive Response Recor ded Date/Time Advance Directives No 5:54pm Resuscitation Status Full Code 04/30/18 5:54pm Discharge Instructions No hospital discharge instruction information available. Additional Source Comments This clinical document has been generated using [employer] software that has been certified by the Office of the National Coordinator for Health Information Technology (ONC 15.99.04.3023.Diam.31.00.0.048989) and the National Committee for Camp Director (NCQA, as an eMeasure certified technology). FOR [...] BASED ON T HE PRIMARY CLINICAL RECORDS. [employer] [facility]. provides no warranty or guara ntee of the accuracy or completeness of information in this document.The followi information is based on time limited clinical information
--- OUTSIDE RECORDS SUMMARY | 2020-04-02 20:42 | XMS REPORT | Continuity of Care Document ---
Author Organization Unknown Address Unknown Phone Unavailable Allergies Active Description Code Type Severity Reaction Onset Reported/Identified Relationship to Patient Clinical Status Yes NO KNOWN DRUG ALLERGIES UNKNOWN NO KNOWN DRUG ALLERG Yes No Known Drug Allergies [id number] Drug Allergy Unknown N/A 05/05/2015 Medications There [...] 305.2 0 CANNABIS ABUSE, UNSPECIFIED USE 03/09/2017 JENNY ROSA 780.7 9 OTHER MALAISE AND FATIGUE [...] 34.3 g/dL 32.0-36.0 MCV 89.0 fL 80.0-97.0 Lipscomb% 6.6 % 0.0-12.0 MPV 10.3 fL 7.4-10.0 Ela% 65.7 % 37.0-80.0 Plt 198 K/uL 150-400 RBC 5.28 M/uL 4.20-5.40 RDW 12.9 % 11.6-14.8 WBC 12.01 K/uL 5.00-10.00 Ela 7.90 K/uL 2.00-6.90 Lipscomb 0.8 K/uL 0.0-0.9 Baso 0.0 K/uL 0.0-0.2 [...] Negative Urine-Blood Negative Negative Urine-Color Yellow Colorless-Lt. [place] ow Urine-Epithelial Cells 0-5/HPF Urine-Glucose Negative Negative Urine-Ketones Negative Negative Urine-Leukocytes Negative Negative Urine-Nitrite Negative Negative Urine-Other Urine Saved if Culture Need ed (48hrs from time of collection) Urine-pH 7.0 5-8.5 Urine-Protein Negative Negative Urine-RBC Negative Urine-Specific [place] 1.010 1.000-1 .030 Urine-WBC Rare/HPF Urobilinogen 0.2 [...] plasma ethanol measurement (mass/volume) < mg/dL <10 Arterial blood gas measurement - 0 18:27 Blood pCO2 41 mm[Hg] 35-45 Blood pO2 562 mm[Hg] 79-93 Arterial blood bicarbonate measurement (moles/volume) 23 mmol/L 23-27 Arterial blood base excess by calculation -1.9 mmo l/L -2.5-2.5 Arterial blood oxygen saturation measurement 100 % 94-100 * Inhaled oxygen flow rate 100% NRG Arterial blood pH measurement with patient temperature correction 7.36 7.37-7.43 Arterial blood carbon dioxide, total measurement (mole s/volume) 24.3 mmol/L 21.0-31.0 Body site R RAD NRG Assessment of wrist artery patency prior to arterial p uncture YES-POS NRG Setting of ventilation mode YES NR G Measurement of body temperature 96.2 NRG Complete blood count (CBC) with automate d white blood cell (WBC) differential - 04/02/20 18:30 Blood leukocytes automated count (number/volume) 14.5 10*3/uL 4.3-11.0 Blood erythrocytes automated count (number/volume) 5.10 10*6/uL 4.35-5.85 Venous blood hemoglobin measurement (mass/volume) 16.1 g/dL 13.3-17.7 Blood hematocrit (volume fraction) 45 % 40-54 Automated erythrocyte mean corpuscular volume 89 [ foz_us] 80-99 Automated erythrocyte mean corpuscular h emoglobin (mass per erythrocyte) 32 pg 25-34 Automated erythrocyte mean corpuscular h emoglobin concentration measurement (mass/volume) 36 g/dL 32-36 Automated erythrocyte distribution width ratio 13. 3 % 10.0- 14.5 Automated blood platelet count (count/volume) 211 10*3/uL 130-400 Automated blood platelet mean volume measurement 10.1 [foz_us] 7.4-10.4 Automated blood neutrophils/100 leukocytes 68 % 42-75 Automated blood lymphocytes/100 leukocytes 23 % 12-44 Blood monocytes/100 leukocytes 6 % 0-12 Automated blood eosinophils/100 leukocytes 3 % 0-10 Automated blood basophils/100 leukocytes 0 % 0-10 Blood neutrophils automated count (number/volume) 9.9 10*3 1.8-7.8 Blood lymphocytes automated count (number/volume) 3.4 10*3 1.0-4.0 Blood monocytes automated count (number/volume) 0. 9 10*3 0.0-1.0 Automated eosinophil count 0.4 10*3/uL 0 .0-0.3 Automated blood basophil count (count/volume) 0.0 10*3/uL 0.0-0.1 Complete urinalysis with reflex to cultu re - 04/02/20 18:30 Urine color determination YELLOW NRG Urine clarity determination CLEAR NR G Urine pH measurement by test strip 5.0 5-9 Specific gravity of urine by test strip 1.025 1.016-1.022 Urine protein assay by test strip, [...] urobilinogen measurement by automated test strip (mass/volume) 0.2 mg/dL < = 1.0 Urine leukocyte esterase detection by dipstick NEG ATIVE NEGATIVE Automated urine sediment erythrocyte cou nt by microscopy (number/high power field) NONE NRG Automated urine sediment leukocyte count by microscopy (number/high power field) NONE NRG Bacteria detection in urine sediment by light microsco py NEGATIVE NRG Squamous epithelial cells detection in u rine sediment by light microscopy RARE NRG Crystals detection in urine sediment by light microsco py NONE NRG Casts detection in urine sediment by light microscopy PRESENT NRG Mucus detection in urine sediment by light microscopy SMALL NRG Complete urinalysis with reflex to culture NO NRG Hyaline casts detection in urine sediment by light nia roscopy RARE NRG Urine drug screening test - 04/02/20 18: 30 Urine phencyclidine detection by screening method NEGATIVE NEGATIVE Urine benzodiazepines detection by screening method NEGATIVE NEGATIVE Urine cocaine detection NEGATIVE NEGATI VE Urine amphetamines detection by screening method P OSITIVE NEGATIVE Urine methamphetamine detection by screening method POSITIVE NEGATIVE Urine cannabinoids detection by screening method P OSITIVE NEGATIVE Urine opiates detection by screening method NEGATI VE NEGATIVE Urine barbiturates detection NEGATIVE N EGATIVE Screening urine tricyclic antidepressants detection NEGATIVE NEGATIVE Urine methadone detection by screening method NEGA TIVE NEGATIVE Urine oxycodone detection NEGATIVE NEGA TIVE Urine propoxyphene detection NEGATIVE N EGATIVE Comprehensive metabolic panel - 04/02/20 18:30 Serum or plasma sodium measurement (moles/volume) 137 mmol/L 135-145 Serum or plasma potassium measurement (moles/volume) 3.7 mmol/L 3.6-5.0 Serum or plasma chloride measurement (moles/volume) 105 mmol/L 98-107 Carbon dioxide 20 mmol/L 21-32 Serum or plasma anion gap determination (moles/volume) 12 mmol/L 5-14 Serum or plasma urea nitrogen measurement (mass/volume ) 16 mg/dL 7-18 Serum or plasma creatinine measurement (mass/volume) 1.04 mg/dL 0.60-1.30 Serum or plasma urea nitrogen/creatinine mass ratio 15 NRG Serum or plasma creatinine measurement w ith calculation of estimated glomerular filtration rate > NRG Serum or plasma glucose measurement (mass/volume) 101 mg/dL 70-105 Serum or plasma calcium measurement (mass/volume) 8.6 mg/dL 8.5-10.1 Serum or plasma total bilirubin measurement (mass/volu me) 0.4 mg/dL 0.1-1.0 Serum or plasma alkaline phosphatase anna surement (enzymatic activity/volume) 64 U/L 40-136 Serum or plasma aspartate aminotransfera se measurement (enzymatic activity/volume) 30 U/L 5-34 Serum or plasma alanine aminotransferase measurement (enzymatic activity/volume) 37 U/L 0-55 Serum or plasma protein measurement (mass/volume) 6.5 g/dL 6.4-8.2 Serum or plasma albumin measurement (mass/volume) 4.3 g/dL 3.2-4.5 CALCIUM CORRECTED 8.4 mg/dL 8.5-10.1 Fibrin D-dimer FEU measurement in platel et poor plasma (mass/volume) - 04/02/20 18:30 Fibrin D-dimer FEU measurement in platelet poor plasma (mass/volume) < ug/mL 0.00-0.49 Magnesium - 04/02/20 18:30 Magnesium 2.1 mg/dL 1.6-2.4 Serum ragweed IgE antibody assay - 04/02 18:30 Serum ragweed IgE antibody assay 218 U/L 125-220 Blood lactic acid measurement (moles/vol ume) - 04/02/20 18:30 Blood lactic acid measurement (moles/volume) 0.41 mmol/L 0.50-2.00 Manual absolute plasma cell count - 03/20 02/06 18:30 Blood monocytes/100 leukocytes 5 % NRG Manual blood segmented neutrophils/100 leukocytes 71 % NRG Blood band neutrophils/100 leukocytes 1 % NRG Manual blood lymphocytes/100 leukocytes 18 % NRG Manual eosinophils/100 leukocytes in nose 1 % NRG Manual blood basophils/100 leukocytes 0 % NRG Blood lymphocytes variant/100 leukocytes 4 % NRG Blood erythrocyte morphology finding identification NORMAL NRG Serum or plasma triglyceride measurement (mass/volume) - 04/02/20 18:30 Serum or plasma triglyceride measurement (mass/volume) 106 mg/dL <150 PROCALCITONIN (PCT) - 04/02/20 18:30 PROCALCITONIN (PCT) 0.02 ng/mL <0.10 Erythrocyte sedimentation rate by tawana gren method - 04/02/20 18:30 Erythrocyte sedimentation rate by westergren method 1 mm 0- 15 Serum or plasma C reactive protein measu rement (mass/volume) - 04/02/20 18:30 Serum or plasma C reactive protein measurement (mass/v olume) 0.35 mg/dL 0.00-0.50 Serum or plasma acetaminophen measuremen t (mass/volume) - 04/02/20 18:30 Serum or plasma acetaminophen measurement (mass/volume ) < ug/mL 10-30 Serum or plasma ethanol measurement (mas s/volume) - 04/02/20 18:30 Serum or plasma ethanol measurement (mass/volume) < mg/dL <10 Encounters ACCT No. Visit Date/Time Discharge Status Pt. Type Provider Facility Loc./Unit Complaint [id number] 03/21/2020 13:40:00 03/21/2020 23:59:[address] [facility] Outpatient AILEEN HAINES [facility] [id number] 06/27/2017 13:05:00 Document Registration [id number] 04/30/2018 17:43:00 018 19:18:00 DIS Emergency AD BURCIAGA DO a [facility] ER POSS OD [id number] 05/05/2015 00:14:00 015 03:15:00 DIS Emergency ELISEO MCINTOSH MD [facility] ER DEHYDRATED [id number] 04/02/2020 18:37:00 Document Registration [id number] 03/09/2017 21:59:00 03/09/2017 23:42: 00 DIS Outpatient JENNY ROSA [facility] ER [id number] 07/01/2017 03:07:00 Document Registration
--- NOTE | 2020-04-02 20:43 | Diagnostic Imaging Report ---
INDICATION: Unresponsive. COMPARISON: 05/05/2015. EXAMINATION: Single frontal view of the chest was obtained. FINDINGS: Normal heart size and pulmonary vascularity. Indwelling endotracheal tube is noted with tip below the clavicular heads and above the neli. The lungs are well aerated and clear. No large pleural effusion or pneumothorax is seen. The visualized osseous structures show no acute abnormalities. IMPRESSION: Indwelling endotracheal tube, as above; otherwise, no acute cardiopulmonary process. Dictated by: Dictated on workstation # [id number]
[2020-04-02] MEDS ORDERED: NS IV 1000 ML 1,000 ML IV SCH (21:00)
[2020-04-03] VITALS (14 sets, daily range): BP systolic 101–150; BP diastolic 56–102
--- NOTE | 2020-04-03 02:30 | NUR ---
This RN in room for patient care. Pt is wide awake at this time, following commands, communicating effectively and appropriately by writing on paper. Pt asked to be informed of test results prior to any relatives. This RN informed pt that mother had already been updated d/t his unresponsiveness earlier. Pt updated on what happened and that he was positive for meth and pot. Pt wrote that he loves pot but would never willingly do meth. This RN attempted therapeutic communication and encourage pt to rest until test results come back. Pt nodded appropriately.
[2020-04-03] MEDS: PROPOFOL DRIP (ICU) 100 ML IV SCH (02:47)
[2020-04-03 03:23] LABS: BASOPHILS % (AUTO) 0 % (0-10); EOSINOPHILS # (AUTO) 0.4 10^3/uL (0.0-0.3); EOSINOPHILS % (AUTO) 3 % (0-10); HEMATOCRIT 45 % (40-54); HEMOGLOBIN 15.8 G/DL (13.3-17.7); LYMPHOCYTES # (AUTO) 4.6 X 10^3 (1.0-4.0); LYMPHOCYTES % (AUTO) 36 % (12-44); MEAN CORPUSCULAR HEMOGLOBIN 32 PG (25-34); MEAN CORPUSCULAR HGB CONC 35 G/DL (32-36); MEAN CORPUSCULAR VOLUME 90 FL (80-99); MEAN PLATELET VOLUME 10.9 FL (7.4-10.4); MONOCYTES % (AUTO) 8 % (0-12); NEUTROPHILS # (AUTO) 6.8 X 10^3 (1.8-7.8); NEUTROPHILS % (AUTO) 53 % (42-75); PLATELET COUNT 203 10^3/uL (130-400); RED CELL DISTRIBUTION WIDTH 13.5 % (10.0-14.5); WHITE BLOOD COUNT 12.8 10^3/uL (4.3-11.0)
[2020-04-03 03:35] LABS: ABG BASE EXCESS 0.7 MMOL/L (-2.5-2.5); ABG OXYGEN SATURATION 95 % (94-100); ABG PCO2 33 MMHG (35-45); ABG PH 7.47 (7.37-7.43); ABG PO2 74 MMHG (79-93)
[2020-04-03 03:36] LABS: ALLENS TEST YES-POS; INSPIRED O2 21%; PATIENT TEMP 35.9; VENTILATOR YES
[2020-04-03 03:43] LABS: ALANINE AMINOTRANSFERASE 29 U/L (0-55); ALBUMIN 3.9 GM/DL (3.2-4.5); ALKALINE PHOSPHATASE 65 U/L (40-136); BILIRUBIN,TOTAL 0.6 MG/DL (0.1-1.0); BUN/CREATININE RATIO 13; CALCIUM 8.5 MG/DL (8.5-10.1); CARBON DIOXIDE 18 MMOL/L (21-32); CHLORIDE 112 MMOL/L (98-107); CREATININE SERUM 0.85 MG/DL (0.60-1.30); GFR ESTIMATED > 60; GLUCOSE 82 MG/DL (70-105); MAGNESIUM 2.1 MG/DL (1.6-2.4); PHOSPHORUS 2.6 MG/DL (2.3-4.7); POTASSIUM 3.8 MMOL/L (3.6-5.0); SODIUM 143 MMOL/L (135-145); TOTAL PROTEIN 5.9 GM/DL (6.4-8.2)
--- NOTE | 2020-04-03 04:50 | Pulmonary Consultation ---
History of Present Illness History of Present Illness Date Seen by Provider: Apr 03, 2020 Time Seen by Provider: 04:48 Date of Admission Allergies and Home Medications Allergies Coded Allergies: No Known Drug Allergies (Unverified , 05/05/15) Home Medications Azithromycin 250 Mg Tablet, 250 MG PO DAILY Prescribed by: ELISEO SAUCEDO on 05/05/15 0304 Past Sheskfg-Riodrf-Qypiee Hx Patient Social History Alcohol Beverage of Choice: Beer Drug of Choice: TESTED + FOR AMPHETAMINES/METHAMPHETAMINES,THC, TRICYCLIC, BENZO'S 04/30/18 Type Used: Cigarettes Recent Foreign Travel: No Contact w/Someone Who Travel: No Recent Infectious Disease Expo: No Recent Hopitalizations: No Seasonal Allergies Seasonal Allergies: No Past Medical History Surgeries: Yes (BILAT EAR DRUM RECONSTRUCTION) Ear Surgery, Tonsillectomy Respiratory: Yes (heavy tobaccoism) Cardiac: No Neurological: No Reproductive Disorders: No Genitourinary: No Gastrointestinal: No Musculoskeletal: No Endocrine: No HEENT: Yes (EAR RECONSTRUCTION) Tonsilitis Hearing Impairment: Hard of Hearing Cancer: No Psychosocial: Yes (RX DRUG ABUSE) Integumentary: No Blood Disorders: No Review of Systems Time Seen by Provider: 04:48 Sepsis Event Evaluation Height, Weight, BMI Height: 5'7" Weight: 155lbs. oz. 70.851244os; 24.91 BMI Method:Stated Exam Exam Vital Signs Date Time Temp Pulse Resp B/P (MAP) Pulse Ox O2 Delivery O2 Flow Rate FiO2 04/03/20 04:20 65 14 95 21 04/03/20 03:41 35.9 04/03/20 03:00 93 14 138/102 (114) 98 Mechanical Ventilator 21.00 04/03/20 02:47 50 151/103 04/03/20 02:00 51 13 136/92 (107) 99 Mechanical Ventilator 21.00 04/03/20 01:00 63 04/03/20 01:00 61 14 135/95 (108) 99 Mechanical Ventilator 21.00 04/03/20 00:30 Mechanical Ventilator 21.00 04/03/20 00:00 100 Mechanical Ventilator 30 04/03/20 00:00 48 13 132/88 (103) 100 Mechanical Ventilator 30.00 04/02/20 23:29 47 14 100 30 04/02/20 23:00 61 14 136/86 (103) 100 Mechanical Ventilator 30.00 04/02/20 22:30 48 13 131/83 (99) 100 Mechanical Ventilator 30.00 04/02/20 22:01 35.3 Mechanical Ventilator 30.00 04/02/20 22:00 54 14 134/91 (105) 100 Mechanical Ventilator 40.00 04/02/20 21:45 50 14 133/86 (102) 100 Mechanical Ventilator 40.00 04/02/20 21:30 48 13 129/89 (102) 100 Mechanical Ventilator 40.00 04/02/20 21:15 55 14 140/94 (109) 100 Mechanical Ventilator 40.00 04/02/20 21:03 60 04/02/20 21:00 Mechanical Ventilator 40.00 04/02/20 20:55 68 16 100 40 04/02/20 20:45 Mechanical Ventilator 40 04/02/20 19:09 57 124/75 04/02/20 18:15 36.4 69 20 142/100 (114) 98 Mechanical Ventilator I & O 04/03/20 07:00 Intake Total 3100 ml Output Total 2300 ml Balance 800 ml Height & Weight Height: 5'7" Weight: 155lbs. oz. 70.662726ku; 24.91 BMI Method:Stated General Appearance: No Apparent Distress, WD/WN, Other (intubated with size 8 endotracheal tube. Breath sounds equal bilaterally. Blood pressure is adequate at 129/73, heart rate 66 sinus no ectopy, he is not overbreathing the ventilator which has a rate set of 14 at this time, oxygen saturation 99%) HEENT: Pharynx Normal, Other (pupils are constricted and unresponsive) Neck: Full Range of Motion, Normal Inspection Respiratory: No Accessory Muscle Use, No Respiratory Distress Cardiovascular: Regular Rate, Rhythm Capillary Refill: Less Than 3 Seconds Extremity: Normal Capillary Refill, Normal Inspection Neurologic/Psychiatric: Alert, Oriented x3 Skin: Normal Color, Warm/Dry Results Lab Laboratory Tests 04/02/20 18:30 04/03/20 02:45 Assessment/Plan Assessment/Plan Acute respiratory failure -D/C propofol -Extubate once pt is awake and alert -COVID is pending -- Doubt it is positive -D/C isolation if resultes are negative Leukocytosis -Repeat PCT -Not currently on Abx -No fever MARIBEL ROMAN DO Apr 03, 2020 04:50
--- NOTE | 2020-04-03 05:57 | NUR ---
Pt extubated at 0528 to room air with this RN and two RT's at bedside, pt tolerated procedure well, see interventions.
[2020-04-03] MEDS ORDERED: MAGNESIUM 1 GM/100 ML IVPB 100 ML IV SCH (06:00)
[2020-04-03] MEDS ORDERED: KCL 20 MEQ TAB (K-DUR) PO SCH (06:00)
[2020-04-03] MEDS ORDERED: POTASSIUM CL 10MEQ/50ML IVPB 50 ML IV SCH (06:00)
--- NOTE | 2020-04-03 11:35 | Short Stay Summary-Hospitalist ---
History of Present Illness HPI/Chief Complaint Pt is a 30yoCM who was admitted due to acute respiratory failure following multi-drug overdose. He remembers smoking a bowl of pot and then doesn't remember much else until this morning. He was found unresponsive by his significant other and EMS was called. He was intubated in the field and brought to the ER. UDS was positive for marijuana, amphetamine, and methamphetamine. He states he has smoked this much pot since he was 18 and normally does not react like this. He has also used amphetamines without this reaction and was concerned about what caused him to be unresponsive. Apparently his significant other notic ed there was missing gabapentin and when informed of this he agreed that he thinks he took that. Due to his unresponsive nature he was tested for COVID19. Source: patient Date Seen 04/03/20 Time Seen by a Provider: 11:29 Attending Physician Anne Blackburn MD PCP Jez Munoz DO Referring Physician Date of Admission Apr 02, 2020 at 20:27 Home Medications & Allergies Home Medications Reviewed patient Home Medication Reconciliation performed by pharmacy medication reconciliations automotive technician instructor and/or nursing. Patients Allergies have been reviewed. Allergies Allergies Coded Allergies No Known Drug Allergies (Unverified05/05/15) Past Nlmwssz-Zmtxjl-Qhsbae Hx Past Med/Social Hx: Reviewed Nursing Past Med/Soc Hx Patient Social History Alcohol Beverage of Choice: Beer Drug of Choice: TESTED + FOR AMPHETAMINES/METHAMPHETAMINES,THC, TRICYCLIC, BENZO'S 04/30/18 Type Used: Cigarettes Recent Foreign Travel: No Contact w/other who traveled: No Recent Hopitalizations: No Recent Infectious Disease Expo: No Seasonal Allergies Seasonal Allergies: No Past Medical History Surgeries: Ear Surgery, Tonsillectomy Reproductive: No HEENT: Tonsilitis Hearing Impairment: Hard of Hearing History of Blood Disorders: No Family History Reviewed Nursing Family Hx No Pertinent Family Hx Review of Systems Constitutional: No chills, No fever EENTM: no symptoms reported Respiratory: No cough, No orthopnea, No short of breath Cardiovascular: No chest pain, No edema, No palpitations Gastrointestinal: No abdominal pain, No constipation, No diarrhea, No nausea, No vomiting Genitourinary: no symptoms reported Musculoskeletal: no symptoms reported Skin: no symptoms reported Psychiatric/Neurological: See HPI Physical Exam Physical Exam Vital Signs Vital Signs - First Documented 04/02/20 04/02/20 04/02/20 18:15 20:45 21:00 Temp 36.4 Pulse 69 Resp 20 B/P (MAP) 142/100 (114) Pulse Ox 98 O2 Delivery Mechanical Ventilator O2 Flow Rate 40.00 FiO2 40 Capillary Refill : Less Than 3 Seconds Height, Weight, BMI Height: 5'7" Weight: 155lbs. oz. 70.484513fs; 24.91 BMI Method:Stated General Appearance: No Apparent Distress, WD/WN, Other (no evidence of trauma) HEENT: PERRL/EOMI, Pharynx Normal Neck: Normal Inspection, Supple Respiratory: Lungs Clear, No Accessory Muscle Use, No Respiratory Distress Cardiovascular: Regular Rate, Rhythm, No JVD, No Murmur Gastrointestinal: Normal Bowel Sounds, Non Tender, Soft Extremity: Normal Capillary Refill, Normal Inspection Neurologic/Psychiatric: Alert, Oriented x3, Normal Mood/Affect Skin: Normal Color, Warm/Dry Results Results/Procedures Labs Laboratory Tests 04/02/20 18:30 04/03/20 02:45 Patient resulted labs reviewed. Imaging [facility], [place] NAME: YUE POWERS [facility] REC#: [id number] PT STATUS: REG ER : 1990 PHYSICIAN: MARIZA MONSON APRN ADMIT DATE: 04/02/20/ER Draft Date of Exam:04/02/20 CT HEAD/CERVICAL SPINE WO PROCEDURE: CT head and CT cervical spine without contrast. TECHNIQUE: Multiple contiguous axial images were obtained through the brain and cervical spine without the use of intravenous contrast. Sagittal and coronal reformations through the cervical spine were then performed. Auto Exposure Controls were utilized during the CT exam to meet ALARA standards for radiation dose reduction. INDICATION: Unresponsive. COMPARISON: 04/30/2018 FINDINGS: CT head: Ventricles and cortical sulci are normal in size and contour. There is no midline shift or mass-effect. No acute intra-axial hemorrhage is seen. There are no abnormal areas of increased or decreased density to suggest acute hemorrhage or edema. No extra-axial masses or collections are present. The bony calvarium is intact. The visualized paranasal sinuses show mild scattered mucosal thickening. The mastoid air cells are partially opacified on the right. CT cervical spine: Static alignment of the cervical spine is maintained. There is no significant anteroretrolisthesis. There is no evidence of jumped facets. Vertebral body heights are maintained. There is no acute fracture. No bony fragments are seen within the spinal canal. No significant degenerative changes are identified. Pre and paravertebral soft tissue structures are unremarkable. Included portions of the lung apices are clear. IMPRESSION: 1. No acute intracranial abnormality. No CT evidence of mass, acute infarct or intracranial hemorrhage. 2. No acute fracture or dislocation of the cervical spine. Short Stay Diagnosis Discharge Diagnosis-Short Stay Admission Diagnosis Acute Respiratory Failure Final Discharge Diagnosis Acute Respiratory Failure Conclusion Plan Acute Respiratory Failure Multidrug overdose Extubated this morning COVID19 PCR negative Doing well on room air Social Work consulted- CPS report made for child living in the home, no needs identified for patient Will DC home Clinical Quality Measures DVT/VTE Risk/Contraindication: Risk Factor Score Per Nursin RFS Level Per Nursing on Admit: 2=Moderate BEVERLY WORTHINGTON MD Apr 03, 2020 11:35
--- NOTE | 2020-04-03 11:57 | NUR ---
SPOKE WITH THE PT (I CALLED HIS ROOM PHONE) AND WENT THRU THE EXT MED HISTORY TO COMPLETE THE MED REC AMOXICILLIN WAS ON THE EXT MED HISTORY HOWEVER PT SAYS HE HAS FINISHED THE THERAPY. PT DENIES TAKING ANY OTHER PRESCRIPTION OR OTC MEDICATIONS I DID UPDATE THE PREFERRED PHARMACY
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
--- NOTE | 2020-04-03 13:25 | Discharge Inst-Simple/Standard ---
Discharge Inst-Standard Patient Instructions/Follow Up Plan of Care/Instructions/FU: Please continue to take your medications as written. Please follow up with your PCP in the next week to follow up this stay. Activity as Tolerated: Yes Discharge Diet: No Restrictions Return to The Hospital For: Chest pain, fever, shortness of breath, confusion, lethargy, if you feel you are getting worse BEVERLY WORTHINGTON MD Apr 03, 2020 13:25
--- NOTE | 2020-04-03 14:00 | NUR ---
YUE POWERS demonstrates understanding of discharge instructions and accurately returns instructions upon questioning. Copy of Post-Discharge Instructions and Medication Discharge Instructions given to patient. YUE POWERS is able to manage continuing needs after discharge. Patients belongings returned to patient. Skin dry and intact; no breakdown noted. Patient discharged from [facility]- on 04/03/2020 at 1400 . YUE POWERS left floor via wheelchair, accompanied by
== END 2020-04-03 14:00 | disposition home or self-care (01) | DRG 917 ==
LOC: EDUNIT# 18:15 → ER 18:16 → ICU 20:27
PROVIDERS: ADMIT Internal Medicine; ATTEND Internal Medicine
PROC: 5A1935Z Respiratory Ventilation, Less than 24 Consecutive Hours (ICD-10-PCS; principal; 2020-04-02)
DX: T43.621A Poisoning by amphetamines, accidental (unintentional), initial encounter (principal); J96.00 Acute respiratory failure, unspecified whether with hypoxia or hypercapnia; T43.011A Poisoning by tricyclic antidepressants, accidental (unintentional), initial encounter
CPT/HCPCS: 36415; 51702; 70450; 71045; 72125; 80053; 80306; 80320; 80329; 81000; 82805; 83605; 83615; 83735; 84100; 84145; 84478; 85007; 85025; 85027; 85379; 85652; 86141; 87040; 87081; 87635; 93005; 94002; 94003; 94799; 99291